=== PATIENT | male | born 1950 | race Caucasian/White ===

== ENCOUNTER 2018-08-06 00:08 | Outpatient (CLI) | payer BC, SELFPAY ==
--- NOTE | 2018-08-06 06:50 | MERGEMPI_ITS ---
*[facility]* *[facility]* [address] [place] [address] Myocardial Perfusion Imaging - SPECT Dante protocol Date of study: 08/06/2018 *PATIENT PRESENTATION* Height: 175.3cm (69in) Blood Pressure: Weight: 112.3kg (247lb) BSA: 2.38m^2 Referring physician: Tae Partida Ordering physician: Matthew Ramos Impressions: - Minor arrhythmias during the stress test which resolved appropriately. - Normal myocardial perfusion and contraction. Summary: 1. Myocardial perfusion imaging: No myocardial perfusion defects noted. 2. The calculated left ventricular ejection fraction after stress: 69%. LV global systolic function is normal. No left ventricular regional motion abnormality. 3. Stress ECG conclusions: The stress ECG is negative. 4. Stress: The target heart rate was achieved. There is a normal resting blood pressure with an appropriate response to stress. The patient experienced no chest pain during stress. Exercise capacity is excellent (12 METS). Indication: R07.9. History: REASON FOR TESTIN07/31/18 PATIENT PRESENTED TO THE ED WITH LEFT UPPER ARM PAIN X 8 WEEKS--WORSE AT NIGHT. NO KNOWN INJURY. DENIES CHEST PAIN/PRESSURE, SHORTNESS OF BREATH, AND NAUSEA. PAST MEDICAL HISTORY: OBESITY FAMILY HISTORY: FATHER-HYPERTENSION, SISTER-HYPERTENSION. SMOKING: INTERMITTENT FOR 3 YEARS A TEENAGER. EXERCISE: DOES NOT EXERCISE. NO CHOLESTEROL INFORMATION AVAILABLE. Risk factors: Family history of coronary artery disease. Obesity. ALLERGIES: NO KNOWN ALLERGIES. MEDICATIONS: ASPIRIN 81 MG DAILY. Imaging Technique: Protocol: Dante protocol. Acquisition: Gated SPECT; 1 day - rest/stress. The patient was imaged in the supine position. Attenuation correction used. Isotope administration: - Rest. Tc[99m]-sestamibi. Dose: 11.5mCi. Injection time: 09:00 AM. Injection to stress time: 00:45. - Stress. Tc[99m]-sestamibi. Dose: 36.1mCi. Injection time: 11:15 AM. 1-2 min before end of exercise Baseline ECG: LAST EKG: SINUS RHYTHM 07/31/18 TODAY'S EKG: SINUS RHYTHM. Stress protocol: + +---+ + !Stage !HR !BP (mmHg) ! + +---+ + !Baseline supine !64 !134/92 (106)! + +---+ + !Baseline standing !73 !142/92 (109)! + +---+ + !Stage I; 1.7mph, 10degrees; 3 min !95 !132/82 (99) ! + +---+ + !Stage II; 2.5mph, 12degrees; 3 min !114!146/78 (101)! + +---+ + !Stage III; 3.4mph, 14degrees; 3 min!135!148/88 (108)! + +---+ + !Recovery; 1 min !141!150/78 (102)! + +---+ + !Recovery; 3 min !93 !172/96 (121)! + +---+ + !Recovery; 6 min !86 !140/80 (100)! + +---+ + * Stress results: Maximal heart rate during stress was 152bpm (99% of maximal predicted heart rate). The maximal predicted heart rate was 154bpm. The target heart rate was achieved. There is a normal resting blood pressure with an appropriate response to stress. The rate-pressure product for the peak heart rate and blood pressure was 71669ow Hg/min. The patient experienced no chest pain during stress. Exercise capacity is excellent (12 METS). Stress ECG: EXERCISE TESTING ENDED IN 10 MINUTES 22 SECONDS WITH MAX HEART RATE OF 152, 98 % OF TARGET. BLOOD PRESSURE: NORMAL RESPONSE. ECTOPY: 3 BEAT VT AT 2 MINUTES RECOVERY. RARE TO INTERMITTENT PVC'S INCREASING STUDY PROGRESSED STUDY. MET'S: 12.41 ANGINA: LEFT POSTERIOR CHEST PRESSURE 2/10 AT 1 MINUTE RECOVERY. MINIMAL LEFT POSTERIOR CHEST PRESSURE AT 3 MINUTES RECOVERY. ISCHEMIA: NO ISCHEMIC CHANGES NOTED. FUNCTIONAL CAPACITY: ABOVE AVERAGE . The stress ECG is negative. A single episode of nonsustained ventricular tachycardia (3 beats). Gill treadmill score: 11. This score predicts a low risk of cardiac events. Myocardial perfusion: Imaging information: gated. The image quality was good. Left ventricular size is normal. No myocardial perfusion defects noted. Ventricular Function (Wall Motion): The calculated left ventricular ejection fraction after stress: 69%. LV global systolic function is normal. No left ventricular regional motion abnormality. Right ventricular function is normal. Study data: Tae Partida MD supervised and was readily available during the procedure. This study was interpreted by [facility]. Study status: Routine. Consent: The risks, benefits, and alternatives to the procedure were explained to the patient and informed consent was obtained. Procedure: Initial setup. A baseline ECG was recorded. Surface ECG leads and manual cuff blood pressure measurements were monitored. Heart sounds: Normal. Lung sounds: Normal. Treadmill exercise testing was performed using the Dante protocol. Study completion: All catheters inserted during the procedure were removed. The patient tolerated the procedure well and was discharged from the lab. Discharge: The patient left the laboratory in stable condition. Birthdate: Patient birthdate: 1950. Sex: Gender: male. Study date: Study date: 08/06/2018. Study time: 06:50 AM. Signature Documentation: - The imaging portion of this study was interpreted by Nuclear Display And Banner Designer Tae Partida MD. - The imaging portion of this study was interpreted by Nuclear Radiologist Vega Ferrera MD. - The Stress ECG portion of this study was interpreted by Tae Partida MD. Electronically signed by Tae Partida 08/06/2018 15:43
== END 2018-08-06 00:28 ==
PROVIDERS: PCP Emergency Medicine; Visit Provider Family Medicine
DX: R07.9 Chest pain, unspecified (principal); E66.9 Obesity, unspecified; Z87.891 Personal history of nicotine dependence; Z82.49 Family history of ischemic heart disease and other diseases of the circulatory system
CPT/HCPCS: 78452; 93017

== ENCOUNTER 2019-11-11 11:57 | Outpatient (CLI) | payer MEDICARE, BC, SELFPAY ==
--- NOTE | 2019-11-11 12:13 | DI.RAD_ITS ---
EXAM: XR HIP LT COMPLETE AND AP PELVIS INDICATION: LEFT HIP PAIN, M25.552. COMPARISON: No exams were available for comparison TECHNIQUE: 2D digital imaging was performed. FINDINGS: In the left hip, there is joint space narrowing, subchondral sclerosis and cyst formation. There als o appear to be osteophytes arising from the acetabulum. Bones are normally mineralized. The soft ti ssues are unremarkable. IMPRESSION: Moderate degenerative changes of the left hip.
[2019-11-11 14:05] LABS: Calculated LDL 100 mg/dL; Cholesterol 156 mg/dL (<200); HDL Cholesterol 35 mg/dL (40-60); Triglyceride 107 mg/dL (<150)
== END 2019-11-11 12:17 ==
PROVIDERS: PCP Emergency Medicine; Visit Provider Emergency Medicine
DX: M25.552 Pain in left hip (principal); M16.12 Unilateral primary osteoarthritis, left hip; E78.89 Other lipoprotein metabolism disorders; Z13.6 Encounter for screening for cardiovascular disorders
CPT/HCPCS: 36415; 80061; 73502

== ENCOUNTER → 2019-12-01 09:44 | Outpatient (BNVA) | payer MEDICARE, BC, SELFPAY | PROVIDERS: PCP Emergency Medicine; Referring Provider Emergency Medicine; Visit Provider Orthopaedic Surgery | DX: M16.12 Unilateral primary osteoarthritis, left hip (principal) | CPT/HCPCS: 99203; 99214 ==

== ENCOUNTER 2019-12-11 08:48 | Outpatient (CLI) | payer MEDICARE, BC, SELFPAY ==
[2019-12-11 10:12] LABS: Abs Immature Grans 0.02 k/cumm (0.0-0.09); Absolute Basophil Count 0.03 k/cumm (0.0-0.2); Absolute Eosinophil Count 0.26 k/cumm (0.0-0.7); Absolute Lymphocyte Count 1.18 k/cumm (1.2-3.4); Absolute Monocyte Count 0.78 k/cumm (0.11-0.7); Absolute Neutrophil Count 4.16 k/cumm (1.2-6.7); Basophils % 0.5; HCT 43.4 % (40.0-50.0); HGB 15.2 g/dL (13.5-17.5); Immature Grans % 0.3 %; Lymphocytes % 18.4; Mean Corpuscular Hemoglobin 32.1 pg (27.0-33.0); Mean Corpuscular Volume 91.8 fL (80-95); Mean Platelet Volume 9.7 fL (8.0-11.0); Monocytes % 12.1; Neutrophils % 64.7; Platelet Count 185 x1000/uL (130-400); RBC 4.73 m/cumm (4.50-6.00); RBC Distribution Width 13.2 % (11.8-14.1); White Blood Cell Count 6.43 k/cumm (4.4-10.8)
== END 2019-12-11 09:08 ==
PROVIDERS: PCP Emergency Medicine; Visit Provider Orthopaedic Surgery
DX: M16.12 Unilateral primary osteoarthritis, left hip (principal); Z01.812 Encounter for preprocedural laboratory examination; Z01.818 Encounter for other preprocedural examination
CPT/HCPCS: 36415; 86850; 86900; 86901; 85025

== ENCOUNTER 2019-12-21 05:58 | Inpatient (IN) | payer MEDICARE, BC, SELFPAY ==
[2019-12-11 08:49] VITALS: BP 126/86; PULSE 60; RESP 18; TEMP 36.7; O2SAT 95
[2019-12-21] VITALS (15 sets, daily range): BP systolic 99–138; BP diastolic 59–90; PULSE 54–66; RESP 11–20; TEMP 36.1–37.1; O2SAT 94–100
--- NOTE | 2019-12-21 | DI.RAD_ITS ---
EXAM: XR PELVIS AP INDICATION: Check position of total hip components in RR. COMPARISON: XR HIP LT IN OR from 12/21/2019 TECHNIQUE: 2D digital imaging was performed. FINDINGS: Patient is status post placement of a left hip prosthesis. The components appear well aligned. DATA REPOSITORY: RADIATION DOSE DELIVERED:
--- NOTE | 2019-12-21 06:30 | DI.RAD_ITS ---
EXAM: XR HIP LT IN OR INDICATION: left total hip portable in OR. COMPARISON: XR HIP LT COMPLETE AP PELVIS from 11/11/2019 TECHNIQUE: 2D digital imaging was performed. FINDINGS: A single image shows placement of components of a left hip prosthesis. The alignment appears satisf actory. DATA REPOSITORY: RADIATION DOSE DELIVERED:
[2019-12-21] MEDS: Lactated Ringers 1,000 ML 80 ML IV ×2 (06:44→08:55)
[2019-12-21] MEDS: ceFAZolin 2 GM/50 ML BAG IVPB ×4 (07:40→18:09)
[2019-12-21] MEDS: Bupivacaine 0.5% Pres-Free 30 ML VIAL (08:23)
[2019-12-21] MEDS: POTASSIUM CHLORIDE/0.9% NACL 1,000 ML 150 MEQ IV ×2 (12:56→21:44)
[2019-12-21] MEDS: oxyCODONE-CR 10 MG TABCR PO (12:59)
--- NOTE | 2019-12-21 14:56 | IN_ITS ---
Date of service: 12/21/19 Time of Service: 14:55 PT Notes Visit Reasons: POST-OP LTOTAL HIP Physical Therapy Inpatient Initial Evaluation Date: 12/21/2019 Referring Doctor: Andrea Jessica M.D. PT Orders: PT CONSULT: s/p ortho surgery Precautions: Fall. Standard. Activity as tolerated. Total hip precautions on the left. Patient Profile/Admitting Diagnosis: Pt is a 69-year-old male status post left total hip arthroplasty on post-operative day zero. PMHX: Medical History (Updated 12/01/19 @ 10:55 by BRUNA Balderas) Idiopathic peripheral neuropathy (Chronic 11/04/17) Obesity KRISTAN (obstructive sleep apnea) Surgical History Colonoscopy - MAC (03/15/17) Orchiectomy, Radical left Social History/Home Situation: Pt lives at home in [place] with his . Five steps to enter the home with no rails. Notes there are stairs in the home, but is not required to use them. Equipment Owned/DME: none Subjective: Pt reports that he is experiencing discomfort in his hip that is different than what he had been experiencing previously. he initially reported being lightheaded but felt better after sitting for awhile and after performing ankle pumping activities. Objective: General Observation: IV line in L UE. Pate catheter in place. O2 via nasal cannula on 2 L/min Mental Status: alert and oriented x4 Pain: 3/10 ?discomfort? Vital Signs: BP 115/68 mmHg in sitting on edge of the bed ROM: Right Upper Extremity: Shoulder Flexion WFL. Shoulder abduction WFL. Elbow flexion WFL. Wrist flexion WFL. Opening and closing of hand WFL. Left Upper Extremity: Shoulder Flexion WFL. Shoulder abduction WFL. Elbow flexion WFL. Wrist flexion WFL. Opening and closing of hand WFL. Right Lower Extremity: Hip flexion 110 degrees. Hip abduction WFL. Knee flexion WFL. Ankle dorsiflexion WFL. Ankle plantarflexion WFL. Left Lower Extremity: Hip flexion WFL. Hip abduction WFL. Knee flexion WFL. Ankle dorsiflexion WFL. Ankle plantarflexion WFL. Strength: Right Upper Extremity: Shoulder flexors 5/5. Shoulder abductors 5/5. Elbow flexors 5/5. Elbow extensors 5/5. Wellness Spa Manager strong. Left Upper Extremity: Shoulder flexors 5/5. Shoulder abductors 5/5. Elbow flexors 5/5. Elbow extensors 5/5. Wellness Spa Manager strong. Right Lower Extremity: Hip flexors 5/5. Hip abductors 5/5. Knee flexors 5/5. Knee extensors 5/5. Ankle dorsiflexors 5/5. Ankle plantarflexors 5/5. Left Lower Extremity: Hip flexors 3-/5. Hip abductors 4+/5. Knee flexors 5/5. Knee extensors 4/5. Ankle dorsiflexors 5/5. Ankle plantarflexors 5/5. Sensation: Intact as to pain and pressure on bilateral lower extremities. Bed Mobility/Transfers: Rolling supervision Supine to sit supervision; complained of lightheadedness Sit to supine supervision Sit to stand SBA Stand to sit SBA Bed to chair SBA Chair to bed SBA Gait: Pt was able to ambulate 120 feet, WBAT on the L LE, using a front-wheeled walker. CGA provided by PT with wheelchair follow provided by PT student. Pt on 2L/min of O2 via NC. Step to gait pattern for first 60 feet and step through for last 60 feet of ambulation. Pt appeared to be more unstable with step through gait pattern. Balance: Static Sitting: Normal Dynamic Sitting: Normal Static Standing: Fair Dynamic Standing: Fair Special Tests: Mobility Limitations Standardized Measure [facility] AM-PAC 6 clicks Basic Mobility Inpatient Short Form: Raw Score: 23 CMS Score: 11% deficit Informed Consent/Education: Patient instructed in purpose of PT consult and plan of care. Assessment: Pt is a 69-year-old male status post left total hip arthroplasty on post-operative day zero. He presents to physical therapy with impairment level findings and functional limitations as listed below. He was able to tolerate ambulation without increases in pain, lightheadedness, or fatigue. Pt appeared to be more unstable with step through gait pattern. He would continue to benefit from skilled physical therapy at this time to assess performance on stairs, and to improve mobility, strength and balance. Patient presents with clinical signs and symptoms consistent with current/admitting diagnoses that have resulted to mobility limitations, gait instability, and generalized weakness as demonstrated by the following impairment level findings: 1. Decreased strength to L LE hip major muscle groups 2. Impaired standing balance 3. Impaired activity tolerance 4. Limitation of joint range of motion in left hip Impairments are contributing to the following functional limitations: 1. Dependent bed mobility skills 2. Increased dependence with transfers 3. Inability to safely ambulate without assistive device and physical assistance 4. Increase completion time for mobility ADL performance 5. Increased fall risk 6. Inability to negotiate steps alone safely Patient is assessed as a 45188 complexity based on the following: History: He presents to physical therapy with impairment level findings and functional limitations as listed above. AM-PAC raw score of 23 with 11% deficit Examination: Demonstrable impairment in strength, balance, and range of motion with underlying impairments and functional limitations as documented above Presentation: Evolving Decision Makin moderate complexity Goals: Goals X1 week 1. Supine-Sit independent 2. Sit-Supine independent 3. Sit-Stand independent 4. Stand-Sit independent 5. Bed-Chair independent 6. Chair-Bed independent 7. Independent gait on level surface with use of least restrictive device for at least 300 feet without report of pain nor dyspnea 8. Independent stair negotiation while holding onto bilateral rails for at least 5 steps without report of pain nor dyspnea 9. Independent with home exercise program 10. Good static and dynamic standing balance/tolerance Plan of Care/Treatment Plan: 1-2x/day, 7 days/week x 1 week. Plan of care has been reviewed with the DRIVER/MERCHANDISER providing the service under Physical Therapy direction. Initiate Physical Therapy intervention for strengthening, bed mobility, transfers, gait, stairs, balance training, use of assistive device. DISCHARGE RECOMMENDATIONS: Discharge to home when medially cleared. Recommend front-wheeled walker for safe ambulation. TREATMENT CODE/TIME: 77555 x 25 minutes + 73579 x 10 minutes beginning at 14:55 P.M. Thank you very much for this referral. Benjamin Matos, SPT Doctor of Physical Therapy Student [facility] Supervision provided by Sharonda Thomas PT, DPT, CLT [facility] [place], [place]
[2019-12-21] MEDS: Docusate Sodium 100 MG CAP PO ×2 (16:11→20:27)
[2019-12-21] MEDS: Ketorolac 30 MG/ML VIAL IVP ×2 (16:11→21:45)
[2019-12-21] MEDS: Acetaminophen 325 MG TAB 650 MG PO (20:27)
[2019-12-21] MEDS: Normal Saline Flush 10 ML SYR IV (21:44)
[2019-12-22] MEDS: ceFAZolin 2 GM/50 ML BAG IVPB ×2 (00:01→06:30)
[2019-12-22] MEDS: Normal Saline Flush 10 ML SYR IV ×2 (04:09→11:14)
[2019-12-22] MEDS: Ketorolac 30 MG/ML VIAL IVP ×2 (04:11→11:13)
[2019-12-22] MEDS: POTASSIUM CHLORIDE/0.9% NACL 1,000 ML 150 MEQ IV (04:17)
--- NOTE | 2019-12-22 07:01 | ROE_ITS ---
REPORT OF OPERATIVE PROCEDURE DATE OF PROCEDURE December 21, 2019 PREOPERATIVE DIAGNOSIS Osteoarthritis left hip. POSTOPERATIVE DIAGNOSIS Osteoarthritis left hip. PROCEDURE Left total hip arthroplasty. COMPONENTS USED 1. 56-mm diameter acetabular shell. 2. 56 x 36 neutral Polyethylene liner. 3. Size 5 DePuy Bureau Stem. 4. 36-mm +5 ceramic femoral head. All components were Press-fit. SURGEON Andrea Jessica M.D. ANESTHESIA General, Brodie Shipman C.R.N.A. 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 He wished to maintain current activity leve ls without pain. A total hip arthroplasty was recommended to alleviate his pain and hopefully restor e some of his previous ambulatory abilities. The risks and complications of the procedure were explai ilya to the patient in detail preoperatively. DESCRIPTION OF PROCEDURE The patient was taken to the Operating Room on 12/21/19. He was placed on the operating table and a ge neral anesthetic was administered. He was then turned to the left lateral position on the operating t able. This position was maintained by a pneumatic beanbag. The left hip was then prepped and draped free in the usual and sterile fashion. 2 grams of Ancef were administered IV prior to skin incision. A standard posterolateral incision was made centered over the greater trochanter. The incision was c arried down through the skin and subcu to the IT band and gluteus fascia. The subcutaneous veins wer e cauterized. The iliotibial was incised longitudinally and this incision was carried proximally in l ine with the fibers of the gluteus deep. Charnley self-retaining retractor was inserted. The pirif ormis tendon was identified. Veins over the piriformis tendon were cauterized and then the piriformis tendon was released with insertion on the femoral head. A tag suture was placed in the tendon for la ter retrieval. Next, the hip capsule was incised as far anteriorly as possible, then sharply reflected with electroc autery from the femoral neck down to the intertrochanteric line. Capsule bleeders were cauterized. A bone hook was then used to dislocate the hip. The femoral neck was then resected at the appropriate l evel and angle using a femoral neck resection guide and oscillating saw. An anterior capsulectomy was performed. Acetabular retractors were inserted. The acetabulum was then serially reamed with hemispheric reamers until there complete filling of the acetabulum with a 56-mm diameter reamer. The 56-diameter acetabular shell was then press fit into the acetabulum. Press fit w as supplemented by one screw through the acetabular shell. A trial liner was inserted. The anterior o steophytes of the acetabular rim were resected using an osteotome and a mallet. Attention was then turned to the femoral side. Box chisel was used to enter the femoral canal. A series of straight reamers were then used to ream t he femoral canal. It was felt to be a tight fit with a size 5 reamer due to narrowing of the femoral canal. The femoral canal was then serially broached up to a size 5 where it was felt there was good f it and fill. Trial reduction was performed with a high offset trial neck and a #5 femoral head trial. The trial was reduced in the acetabulum. Then, an intraoperative AP x-ray was obtained. The intraop erative AP x-rays showed that the size 5 femoral stem provided good fit and fill. The canal narrowed distally quite a bit and I did not feel that a size 6 stem could be safely inserted. Also, determined from the x-ray that a +5 head would equalize limb lengths. The hip was dislocated, the trial femoral component was removed. The trial acetabular liner was removed. The manhole cover was inserted to blo ck the hole in the center of the acetabular shell. The actual liner, 56 x 36 neutral was placed in th e acetabular shell and impacted and locked in place with the impactor mallet. The GARCIA porous-coated size 5 Bureau Stem was then inserted in proper anteversion and then impacted wit h the road oiling truck driver and mallet until fully seated in the femur. It was an excellent press-fit with no motion at the bone prothesis interface. The size 36 +5 ceramic femoral head was then placed on the neck of the femoral stem and then impacted in place with the impactor mallet. The wound was irrigated with p ulse irrigation lavage and the femoral component was reduced into the acetabulum. Stability was check ed at this point. The hip was stable through 90 degrees of flexion and 60 degrees of internal rotatio n, and was stable with external rotation in extension. The left thigh was abducted in a Trivedi stand an d closure was begun. Tranexamic acid 2 grams and 150 cc of saline solution was instilled into the wound and allowed to sta y in the wound for about a minute before suctioning. Any bleeders that remained were cauterized. The posterior capsular flap that was developed during exposure was now attached to the posterior edge of the greater trochanter with sutures of #2 FiberWire passed through drill holes in the greater tro chanter posteriorly. The piriformis tendon was re-attached to the abductor tendon at its insertion o n the greater trochanter with interrupted [id number] sutures of #1-Vicryl suture material. The IT band and gluteus fascia were approximated with interrupted [id number]-az-zdugi sutures of #1-Vicryl willett ture material. The subcu was approximated with interrupted #2-0 Vicryl sutures and running subcuticul ar suture with #4-0 absorbable suture was performed. This was supplemented with tissue glue and Steri -Strips. The wound was dressed with Xeroform gauze, sterile gauze, 4x4s and ABD pads covered with a f ormalistic tape. The patient was then turned supine on the operating table. An abduction pillow was placed between his legs. The patient's anesthesia was reversed without complications. The wound margins had been infi ltrated with 0.5% Marcaine with epinephrine solution prior to skin closure for postoperative analgesi a. Estimated blood loss 200 cc. The patient tolerated the procedure well and was discharged to the Recovery Room in good condition.
[2019-12-22 07:25] VITALS: BP 101/65; PULSE 64; RESP 19; TEMP 36.4; O2SAT 99
[2019-12-22 07:37] LABS: HCT 36.1 % (40.0-50.0); HGB 12.3 g/dL (13.5-17.5); Mean Corp. HGB Concentration 34.1 g/dL (32.0-36.0); Mean Platelet Volume 10.5 fL (8.0-11.0); Platelet Count 140 x1000/uL (130-400); RBC 3.84 m/cumm (4.50-6.00); RBC Distribution Width 13.2 % (11.8-14.1)
[2019-12-22 08:07] VITALS: O2SAT 96
[2019-12-22 08:34] VITALS: TEMP 36.4; O2SAT 99
--- NOTE | 2019-12-22 08:36 | PT.INTREAT ---
Date of service: 12/22/19 Time of Service: 08:36 PT Notes Visit Reasons: POST-OP LTOTAL HIP 12/22/2019 SUBJECTIVE: Pt stating he has minimal discomfort this morning. He slept well last night. Agreeable to PT treatment. OBJECTIVE: Pt supine in bed upon entering his room this morning. PT EDUCATION: Review 3 hip precautions with patient and nursing. TRANSFERS Supine to sit: I Sit to stand: SBA Stand to sit: SBA and cues for reaching back. GAIT Device: FWW Weight bearing: AT L Assist: SBA Distance: 120'x2 Deviation: Step to patern progressing to step through THEREX: Performs light LE strengthening and muscle setting as noted on flow sheet. STAIRS: 3-4, 2-6, 2 rails, step to pattern, SBA. ASSESSMENT: Tolerates PT well this morning. Pain is well managed. Pt does require cueing for safety with transfers and reminders about his hip precautions. No difficulty managing stairs or with straight plane ambulation. PLAN: Continue current POC. Treatment time: 25 minutes [id number], [id number] Melissa Bonilla, DANTE
[2019-12-22] MEDS: Multivitamin w/Minerals TAB 1 TAB PO (08:56)
[2019-12-22] MEDS: Pantoprazole 40 MG TABCR PO (08:56)
[2019-12-22] MEDS: Docusate Sodium 100 MG CAP PO (08:56)
--- NOTE | 2019-12-22 09:08 | PDOC.CMIN ---
Care Management Initial Assess REASON FOR HOSPITALIZATION:: Post-Op L Total Hip PAST MEDICAL HISTORY/PAST SURGICAL HISTORY:: Idiopathic perpheral neuropathy, obesity, KRISTAN, colonoscopy, orchiectomy radical left. PREVIOUS FUNCTIONAL STATUS/SOCIAL/FAMILY SUPPORTS:: Kelli resides in [place] with his partner, Maria Fernanda. His sister, Debra resides in [place], where Kelli is originally from. 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 Kelli was previously and has four adult children. He reported he is enjoying detention thus far. CURRENT FUNCTIONAL STATUS:: Kelli was sitting up in his chair when CM met with him. He was pleasant in interaction and shared no concerns. ADVANCE DIRECTIVES:: None on file; document provided. Has patient been provided with information about the portal?: Yes Did the patient sign up for the portal?: No (Will manage his own.) CODE STATUS:: Full Code INSURANCE COVERAGE / FINANCIAL ISSUES:: BC/BS. Medicare CURRENT HOME/COMMUNITY SERVICES/EQUIPMENT:: FWW. PRIMARY CARE PHYSICIAN:: Chao Doran DO. POTENTIAL DISCHARGE NEEDS:: PT Evaluation, possible [facility]NA referral. PATIENT/FAMILY EDUCATION NEEDS:: Review discharge instructions, discuss Ask Me Three. ANTICIPATED BARRIERS TO DISCHARGE:: None identified. TRANSPORTATION:: Via private vehicle with his partner. PLAN:: Kelli will return home when ready per MD. He will follow up with Orthopedics and his plan of care as prescribed including medication recommendations and activity restrictions. Undetermined if he will have new VNA orders upon discharge; CM continues to follow. He will transport via private vehicle with his significant other.
[2019-12-22] MEDS: Enoxaparin 40 MG/0.4 ML SYR SC (10:01)
[2019-12-22 12:05] VITALS: BP 120/72; PULSE 85; RESP 20; TEMP 37.3; O2SAT 97
--- NOTE | 2019-12-22 12:33 | W.PM.DS.N ---
Date of service: 12/22/19 Time of Service: 12:33 DS: Diagnosis Discharge Diagnosis (1) Primary osteoarthritis of left hip: Status: Acute Discharge Plan Disposition Patient Disposition: HOME Condition: Good Discharge Details Reason For Visit: POST-OP LTOTAL HIP Admit Date/Time: 12/21/19 05:58 Admit Provider: Andrea Jessica Attending Provider: Andrea Jessica Primary Care Provider: Chao Doran Hospital Course Hospital Course: Patient was taken the operating on a day of admission 12/21/2019 where he underwent a left total hip arthroplasty without complication. He was mobilized in the afternoon following the surgery. He progressed rapidly with his mobilization achieving full independence with transfers and ambulation by 12/22/2019. He remained afebrile throughout his hospital course. Postop hemoglobin on 12/22/2019 was 12.3 g. He was taking no oral narcotics. He was maintained just with the multimodal pain medicines. I felt he had completed the acute care phase of his hospitalization and could be safely discharged home. Home Meds and New Rx's Prescriptions: New ibuprofen 800 mg tablet 800 mg PO TID Qty: 30 RF: 0 oxycodone-acetaminophen 5-325 mg tablet 1 tab PO Q4H PRN (Reason: pain) Qty: 20 RF: 0 Discontinued naproxen sodium [Aleve] 220 mg Tablet 440 mg PO HS RF: 0 No Action sertraline 50 mg tablet 150 mg PO DAILY Qty: 300 RF: 6 Discharge Instructions Additional Instructions: Walk every day as much as pain allows. Use walker until return. No driving the car until return. Return to 's office in 2 weeks. Elevate L leg when sitting. Total hip precautions L for 6 weeks. You may lay on L side if not painful. Keep pillow between knees when you lay on R side. Apply ice to L hip incision 3-4 times/day for 1 hour each time. Take one baby aspirin (81 mg) twice/day for 30 days to prevent bloodclots in legs. May take off outer bandage from L hip to shower on . After showering, pat the last layer of bandage dry. Allow the last layer of dressing to fall off by itself over time. Take ibuprofen 3 times/day as prescribed, to limit inflammation and pain. Take oxycodone for breakthru pain, if needed. Referrals: Andrea Jessica MD [ [facility] STAFF PHYSICIAN] - (f/u in 2 weeks.) Activity:: Activity as Tolerated Equipment/Supplies:: Walker Diet:: As Tolerated Discharge Orders Discharge Orders: Discharge Order (Routine); Ordered 12/22/19 Ordered By: Andrea Jessica DS: Summary Status at Discharge Functional status at discharge: uses cane/walker Overall status at discharge: patient is progressing back to baseline Mental Status: mental status grossly normal Speech and Movement: speech and movement normal Mood: congruent mood Affect: normal affect Exam Psych Mental Status: mental status grossly normal Speech and Movement: speech and movement normal Mood: congruent mood Affect: normal affect DS: Data Vitals/I&O Vitals and I&O: Vital Signs Temperature 36.4 C L 12/22/19 07:25 Temperature Source Tympanic 12/22/19 07:25 Pulse 64 12/22/19 07:25 Pulse Rhythm Regular 12/22/19 09:11 Respiratory Rate 19 12/22/19 07:25 Respiratory Effort 12/22/19 09:11 Respiratory Depth Normal 12/22/19 09:11 Respiratory Pattern Normal 12/22/19 09:11 Blood Pressure 101/65 12/22/19 07:25 Pulse Oximetry 99 12/22/19 08:34 Respiratory End-tidal CO2 30 12/21/19 12:10 Oxygen Delivery Method Nasal Cannula 12/22/19 08:34 Oxygen Flow Rate 3 12/22/19 08:34 Pain Level 2 12/22/19 11:13 Intake & Output 12/21/19 12/22/19 12/22/19 23:59 11:59 23:59 Intake Total 1695 / 2945 4280.0 / 4280.0 Output Total 575 / 675 1225 / 1225 Balance 1120 / 2270 3055.0 / 3055.0 Intake: IV 1695 / 2945 1415.0 / 1415.0 Oral 2865 / 2865 Output: Urine 575 / 675 1225 / 1225 Other: Urine Color Pale Yellow Light Shelbi Urine Appearance Clear Clear Urine Odor None Normal Emesis Description None Voiding Methods Indwelling Catheter Indwelling Catheter Data Completed and Pending Labs on day of discharge: Labs from last 24 hours 12/22/19 07:05 WBC 13.40 H RBC 3.84 L Hgb 12.3 L Hct 36.1 L MCV 94.0 MCH 32.0 MCHC 34.1 RDW 13.2 Plt Count 140 MPV 10.5 PFSH Social History Smoking/Tobacco Use Status: Former Tobacco Use Quit Date: 10/21/93 Alcohol Intake: current Drug use: Never Substance use type: does not use 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
[2019-12-22] MEDS: oxyCODONE-CR 10 MG TABCR PO ×2 (12:44)
--- NOTE | 2019-12-22 13:01 | PT.INTREAT ---
Date of service: 12/22/19 Time of Service: 13:01 PT Notes Visit Reasons: POST-OP LTOTAL HIP 12/22/2019 SUBJECTIVE: Pt reporting 0/10 pain. He would like to get up and walk because he has been sitting for quite some time. He notes he is going home. OBJECTIVE: Seated in recliner. Agreeable to PT treatment. TRANSFERS Sit to stand: I Stand to sit: I GAIT Device: FWW Weight bearing: AT L Assist: S Distance: 120'x2 Deviation: Step through pattern, often carries his walker. THEREX: Review HEP for light muscle setting, AROM of the hip within post op precautions. PT EDUCATION: Answer all questions for pt and his significant other. Review post op total hip precautions. ASSESSMENT: Pt continues to do well s/p day 1 of total hip replacement, posterior approach. He has a good understanding of total hip precautions and his HEP. Good management on stairs and with straight plane ambulation using FWW. PLAN: Pt to be discharged home today. See discharge summary for details. Treatment time: Melissa Bonilla PTA
--- NOTE | 2019-12-22 15:18 | PDOC.CMDIS ---
LACE Index Scoring Tool - Questions: Length of Stay (in days): 1 Acuity (Admit via E.D.?): No E.D. Visits: 0 - Answers: Total Score: 1 Risk of Readmission: Low Risk Care Management Discharge Reason for Hospitalization: Post-Op L Total Hip Discharge Plan: Kelli will return home when ready per MD. He will follow up with Orthopedics and his plan of care as prescribed including medication recommendations and activity restrictions. He reports already having a FWW at home for recovery. He will transport via private vehicle with his significant other. Patient/Family Education Needs: Review of discharge instructions, discuss Ask Me Three.
--- NOTE | 2019-12-23 17:00 | PT.INDS ---
Date of service: 12/23/19 PT Notes Visit Reasons: POST-OP LTOTAL HIP Physical Therapy Inpatient Discharge Summary Date: 12/23/2019 Dates of Service: 12/21/2019 through 12/22/2019 This is a clinical summary of care provided on the duration of dates listed above. No charge was made in the completion of this documentation. Patient Profile/Admitting Diagnosis: Pt is a 69-year-old male status post left total hip arthroplasty on post-operative day zero. Objective: General Observation: IV line in L UE. Pate catheter in place. O2 via nasal cannula on 2 L/min. Alert and oriented x4 Pain: 3/10 ?discomfort? ROM: Right Upper Extremity: Shoulder Flexion WFL. Shoulder abduction WFL. Elbow flexion WFL. Wrist flexion WFL. Opening and closing of hand WFL. Left Upper Extremity: Shoulder Flexion WFL. Shoulder abduction WFL. Elbow flexion WFL. Wrist flexion WFL. Opening and closing of hand WFL. Right Lower Extremity: Hip flexion 110 degrees. Hip abduction WFL. Knee flexion WFL. Ankle dorsiflexion WFL. Ankle plantarflexion WFL. Left Lower Extremity: Hip flexion WFL. Hip abduction WFL. Knee flexion WFL. Ankle dorsiflexion WFL. Ankle plantarflexion WFL. Strength: Right Upper Extremity: Shoulder flexors 5/5. Shoulder abductors 5/5. Elbow flexors 5/5. Elbow extensors 5/5. Channel Development Manager strong. Left Upper Extremity: Shoulder flexors 5/5. Shoulder abductors 5/5. Elbow flexors 5/5. Elbow extensors 5/5. Channel Development Manager strong. Right Lower Extremity: Hip flexors 5/5. Hip abductors 5/5. Knee flexors 5/5. Knee extensors 5/5. Ankle dorsiflexors 5/5. Ankle plantarflexors 5/5. Left Lower Extremity: Hip flexors 3-/5. Hip abductors 4+/5. Knee flexors 5/5. Knee extensors 4/5. Ankle dorsiflexors 5/5. Ankle plantarflexors 5/5. Sensation: Intact as to pain and pressure on bilateral lower extremities. Bed Mobility/Transfers: Rolling Independent Supine to sit Independent Sit to supine Independent Sit to stand Independent Stand to sit Independent Bed to chair Independent Chair to bed Independent Gait: Pt was able to ambulate 120 feet x2, WBAT on the L LE, using a front-wheeled walker. Supervision provided by PROGRAM ANALYST. Stairs: Pt was able to ascend and descend the 4-inch steps x 3 and 6-inch steps x2 using bilateral upper extremity support. Step to gait pattern. SBA provided by PROGRAM ANALYST. Balance: Static Sitting: Normal Dynamic Sitting: Normal Static Standing: Fair Dynamic Standing: Fair Assessment: Pt is a 69-year-old male status post left total hip arthroplasty that presented on post-operative day zero. He presented to physical therapy with impairment level findings and functional limitations as listed below. He was able to tolerate ambulation without increases in pain, lightheadedness, or fatigue. Pt appeared to be more unstable with step through gait pattern initially. Pt was able to progress to independence with transfers and bed mobility. He demonstrated improvements in walking ability as he was able to ambulate a greater distance with only supervision provided by physical therapy. Pt was able to tolerate negotiation of the steps without difficulty or complaints of increased pain. He no longer requires skilled physical therapy at this time. Patient presented with clinical signs and symptoms consistent with current/admitting diagnoses that have resulted to mobility limitations, gait instability, and generalized weakness as demonstrated by the following impairment level findings: 1. Decreased strength to L LE hip major muscle groups 2. Impaired standing balance 3. Impaired activity tolerance 4. Limitation of joint range of motion in left hip Impairments continue to contribute to the following functional limitations: 1. Dependent bed mobility skills 2. Increased dependence with transfers 3. Inability to safely ambulate without assistive device and physical assistance 4. Increase completion time for mobility ADL performance 5. Increased fall risk 6. Inability to negotiate steps alone safely Patient was assessed as a [id number] moderate complexity based on the following: History: He presented to physical therapy with impairment level findings and functional limitations as listed above. AM-PAC raw score of 23 with 11% deficit Examination: Demonstrable impairment in strength, balance, and range of motion with underlying impairments and functional limitations as documented above Presentation: Evolving Decision Makin moderate complexity Goals: Goals X1 week 1. Supine-Sit independent -MET 2. Sit-Supine independent -MET 3. Sit-Stand independent -MET 4. Stand-Sit independent -MET 5. Bed-Chair independent -MET 6. Chair-Bed independent -MET 7. Independent gait on level surface with use of least restrictive device for at least 300 feet without report of pain nor dyspnea -NOT MET 8. Independent stair negotiation while holding onto bilateral rails for at least 5 steps without report of pain nor dyspnea -MET 9. Independent with home exercise program -MET 10. Good static and dynamic standing balance/tolerance -NOT MET DISCHARGE RECOMMENDATIONS: Discharge to home when medially cleared. Recommend front-wheeled walker for safe ambulation. Thank you very much for this referral. Benjamin Matos, SPT Doctor of Physical Therapy Student [facility] Supervision provided by Sharonda Thomas PT, DPT, CLT [facility] [place], [place]
== END 2019-12-22 14:37 | disposition home or self-care (01) | DRG 470 ==
LOC: PDS 06:02 → MS 11:31
PROVIDERS: Admitting Provider Orthopaedic Surgery; PCP Emergency Medicine; Visit Provider Orthopaedic Surgery
PROC: 0SRB04A Replacement of Left Hip Joint with Ceramic on Polyethylene Synthetic Substitute, Uncemented, Open Approach (ICD-10-PCS; CPT 27130; principal; 2019-12-21 07:30)
DX: M16.12 Unilateral primary osteoarthritis, left hip (principal); M25.552 Pain in left hip; Z96.642 Presence of left artificial hip joint; G47.33 Obstructive sleep apnea (adult) (pediatric)
CPT/HCPCS: 27130; 36415; 85027; 97110; 97162; 97530; J1650; NC; 72170; 73501; J0131; J0690; J1100; J1885; J2001; J2250; J2405; J3010; L1686

== ENCOUNTER 2020-01-06 10:11 | Outpatient (CLI) | payer MEDICARE, BC, SELFPAY ==
--- NOTE | 2020-01-06 09:15 | DI.RAD_ITS ---
EXAM: XR HIP LT COMPLETE AP PELVIS CLINICAL HISTORY: f/u TECHNIQUE: COMPARISON: XR PELVIS AP from 12/21/2019 FINDINGS: Two views were obtained. There is total hip joint replacement position on the left.. The components appear well seated. Moderate degenerative changes the right hip are noted with some narrowing of th e cartilaginous joint space and subchondral sclerosis the superior acetabulum along with mild acetabu lar spurring. IMPRESSION:
== END 2020-01-06 10:31 ==
PROVIDERS: PCP Emergency Medicine; Referring Provider Emergency Medicine; Visit Provider Orthopaedic Surgery
DX: Z96.642 Presence of left artificial hip joint (principal); Z47.1 Aftercare following joint replacement surgery; M16.11 Unilateral primary osteoarthritis, right hip
CPT/HCPCS: 73502

== ENCOUNTER → 2020-06-08 09:01 | Outpatient (BNVA) | payer MEDICARE, BC, SELFPAY | PROVIDERS: PCP Emergency Medicine; Referring Provider Emergency Medicine; Visit Provider Surgery | DX: Z12.11 Encounter for screening for malignant neoplasm of colon (principal); Z86.010 Personal history of colon polyps | CPT/HCPCS: 99212 ==

== ENCOUNTER 2020-06-20 07:20 | Outpatient (CLI) | payer MEDICARE, BC, SELFPAY ==
[2020-06-21 14:27] LABS: COVID-19 RT-PCR Result NEGATIVE (Negative)
== END 2020-06-20 07:40 ==
PROVIDERS: PCP Emergency Medicine; Visit Provider Surgery
DX: Z11.59 Encounter for screening for other viral diseases (principal); Z01.818 Encounter for other preprocedural examination
CPT/HCPCS: U0003

== ENCOUNTER 2020-06-23 07:15 | Day surgery (SDC) | payer MEDICARE, BC, SELFPAY ==
[2020-06-23 07:25] VITALS: BP 129/86; PULSE 66; RESP 16; TEMP 36.3; O2SAT 95
[2020-06-23] MEDS: Lactated Ringers 1,000 ML 80 ML IV (07:51)
--- NOTE | 2020-06-23 08:32 | BOWEL_PTH ---
PATIENT: Kelli Mast LOC: [facility] U#:[id number] AGE/SX: 70/M ROOM: RE06/23/[address]: Farzaneh Linn : 1950 BED: DIS: 06/23/2020 SPEC #: [id number] RECD: 06/23/20 10:19 STATUS: SAVANNA REQ #: [id number] DAT: 06/23/20 08:[address]: Farzaneh Linn DEPT: Surgical Specimen RECD BY: Jessenia West ENTERED: 06/23/20 10:21 SP TYPE: Bowel OTHR DR: Chao Doran DO Tissues: 1 - BIOPSY BOWEL Procedures: GROSS AND MICRO LEVEL 4 Comments: [id number]
--- NOTE | 2020-06-23 08:55 | W.COLOREPORT ---
Date of service: 06/23/20 Time of Service: 08:56 Colonoscopy Report Date of procedure: 06/23/20 Pre-op diagnosis general: A. polyp/divertic Post-op diagnosis procedure note: same Procedure: CE polypectomy x2 w/ cold forcept Surgeon: Farzaneh Linn Anesthesia proc note operative: MAC Estimated blood loss (mL): 1 Pathology: other Complications: None Disposition: same day Prep: Miralax/Dulcolax Retraction Time: 12 mins Procedure Description: After informed consent was obtained the patient was taken to the procedure room and placed in a left decubitous position. Monitors were applied and a time out was done. The patients name, date of , procedure, allergies to medications and metal in their body was reviewed. The patient was then sedated. Once sedated and comfortable a rectal exam was done. External exam shows old residual hemorrhoidal tags.. Internal exam revealed a normal sphincter tone and no palpable masses. The prostate nl The scope was then introduced and retrofelexed. No internal hemorrhoids were identified. The scope was then advanced to the cecum w/out difficulty. The TI and appendiceal orifice were identified. The prep was good. The scope was then slowly retracted over 12 minutes back into the rectum. Polyps were removed at 30cm. The patient has a 0.75 cm and 0.5 cm. These are flat and have the characteristics of a flat serrated adenoma. They removed piecemeal with a cold biting forcep. All specimens retrieved no bleeding is noted. He has a few small scattered diverticuli in the sigmoid colon of no consequence. There is no signs of active bleeding or infection. The mucosa is pink and healthy. The scope was removed and the patient was woken up and taken back to Same day surgery in stable condition. The patient tolerated the procedure well and there were no immediate complications. Follow up: The patient should follow up in 3 to 5 years pathology pending, unless they develop changes in bowel habits or other new gastrointestinal complaints.
--- NOTE | 2020-06-23 08:57 | PDOC.DSDIS_ITS ---
Discharge Plan Disposition Patient Disposition: HOME Condition: Good Discharge Details Reason For Visit: colon scope Attending Provider: Farzaneh Linn Primary Care Provider: Chao Doran Home Meds and New Rx's Prescriptions: Discontinued polyethylene glycol 3350 17 gram/dose powder 238 g PO ONCE Qty: 238 RF: 0 bisacodyl [Dulcolax (bisacodyl)] 5 mg tablet,delayed release (DR/EC) 5 mg PO ONCE Qty: 4 RF: 0 Discharge Instructions Additional Instructions: Findings:polyp x2 Follow up: repeat in 3-5 yrs. We will send a letter with pathology results in 2 to 3 weeks. Please call if you develop: fevers >101.5 Nausea or Vomiting Abdominal pain that is not transient DAY SURGERY UNIT POST COLONOSCOPY INSTRUCTIONS 1. Because there will be medication in your system for the next 24 hours, you may feel a little sleepy. Your coordination will be affected. Therefore: a. Do not drive or operate dangerous equipment for 24 hours. b. Do not drink alcohol beverages for 24 hours (not even beer). c. Plan to go home and rest for the day. 2. Generally there are no restrictions on your activity after a day or so has gone by, but you may feel a bit fatigued for a few days. 3 After you arrive home you may have a light meal and return to a normal diet as you can tolerate it without feeling sick to your stomach. 4. After surgery, you may feel pain or discomfort. This should be only transient, but if it persists please contact your doctor. 5. If there are any questions regarding the findings of your procedure, please feel free to contact your doctor. 6. If you are unable to contact your doctor with a problem, contact the hospital at [phone]. 7. Continue all your regular medications unless directed otherwise. I understand the above instructions and have no questions. Signature of Patient or Responsible Adult Escort Date/Time Name of Responsible Adult Escort Signature of Nurse Date/Time High Fiber Diet What is Dietary Fiber? All fiber comes from plants, bushes, corrie or trees. Of course, the ones that we eat provide us with fruits, vegetables and grains. There are many different types of fiber but the three that are most important to the health of the body are: Insoluble Fiber This fiber does not dissolve in water, nor is it fermented by the bacteria residing in the colon. Rather, it retains water and in so doing, helps to promote a larger, bulkier and more regular bowel activity. This, in turn, may be important in preventing disorder such as diverticulosis and hemorrhoids, and in sweeping out certain toxins and cancer causing carcinogens. Sources of insoluble fiber are: ? whole grain wheat and other whole grains ? corn bran, including popcorn, unflavored and unsweetened ? nuts and seeds ? potatoes and the skins from most fruits from trees such as apples, bananas and avocados ? many green vegetables such as green beans, zucchini, celery and cauliflower ? some fruit plants such as tomatoes and kiwi Soluble Fiber These fibers are fermented or used by the colon bacteria as a food source or nourishment. When these good bacteria grow and thrive, many health benefits occur in both the colon and the body. Soluble fiber is present in some degree in most edible plant foods, but the ones with the most soluble fiber include: ? legumes such as peas and most beans, including soybeans ? oats, rye and barley ? many fruits such as berries, plums, apples bananas and pears ? certain vegetables such as broccoli and carrots ? most root vegetables ? psyllium husk supplement products Prebiotic Soluble Fiber These are relatively newly discovered soluble plant fibers. The technical name for this fiber is inulin or fructan. When these soluble fibers are fermented by the good colon bacteria, some further significant health benefits have been shown to occur by research in many medical centers. These soluble prebiotic fibers occur in significant amounts in: ? asparagus ? yams ? onions ? garlic ? bananas ? leeks ? agave ? chicory and other root vegetables such as [place] artichokes ? wheat, rye and barley (smaller amounts) Benefits of a High Fiber Diet The health benefits of a high fiber diet, consumed on a regular basis and reaching recommended amounts (below), are now fairly well-defined. There are some additional benefits in the early research stage with the prebiotic soluble fibers. What is now known regarding a high fiber diet include: Bowel Regularity A high fiber diet promotes regularity with a softer, bulkier and regular stool pattern. This decreases the chance of hemorrhoids, diverticulosis and perhaps colon cancer. Cholesterol and Reduced Triglycerides The soluble fibers are the ones that will reduce cholesterol levels when used on a regular basis. Psyllium husk and prebiotic soluble fiber will also reduce cholesterol. They may also reduce the incidence of coronary heart disease. Oats, flax seeds and legumes or beans are the recommended fibers. Colon Polyps and Cancer It is still not certain if a high fiber diet helps prevent colon cancer. Considerable research suggests that this may occur. Certainly it makes sense to increase regularity and so speed the movement of cancer causing carcinogens through the bowel. In addition, reducing a heavy meat diet reduces the bile flow from the liver in a favorable way. This, too, reduces the amount of carcinogens that reach and are manufactured in the colon. Finally, a high fiber diet, including prebiotic soluble fiber, increases the integrity and health of the wall of the colon. The risk of cancer may be reduced. Colon Wall Integrity A high fiber diet changes the bacterial makeup of the colon toward a more favorable balance. For instance, it is known that those people with obesity, diabetes type 2 and inflammatory bowel disease have a predominance of bad bacteria in the colon. This, in turn, may render the bowel wall weak and allow bacteria and, indeed, even toxins to seep through. A high fiber diet with a modest reduction in animal and meat products may return the bacterial makeup to a more positive balance. This, in particular, has been seen when the soluble fiber prebiotics are added to the diet. Blood Sugar Soluble fiber such as in legumes (beans), oats and in prebiotic fibers slows the absorption of blood sugar and so helps regulate the sugar in the blood. Insoluble fiber on a regular basis is associated with reduced risk of type 2 diabetes. Weight Loss High fiber diets are more filling and give a sense of fullness sooner than an animal and meat based diet does. In addition, the soluble prebiotic fibers have been shown to turn off the hunger hormones produced in the wall of the gut and to increase the hormones that give a sense of fullness. Those hormones are made in the wall of the gut. New medical research has shown that the bacterial makeup in the colon in overweight people is abnormal to the extent that they manufacture and absorb almost twice the number of calories through the colon wall as do normals. Prebiotic fibers (below) will help change this hormonal balancein a favorable way. Bacteria and the Function of the Colon The colon finishes the digestive process. Hopefully, the waste products move through in a nice regular manner. Insoluble fibers help this process by retaining water and so producing a bulkier, softer stool, which is easy to pass. The additional role of the colon is to provide a home for an enormous number of micro-organisms, mostly bacteria. Recent research has shown that there are over 1,000 species of bacteria with a total bacterial count ten times the number of cells in the body. These bacteria play a major role in keeping the colon wall itself healthy. In addition, these good bacteria produce a very strong immune system for the body. They significantly increase calcium absorption and bone density. They provide other documented benefits. It is the soluble fibers in the diet that are so effective in stimulating the growth of good colon bacteria. How Much is Enough? The amount of fiber in food is measured in grams. National nutritional authorities recommend the following amounts of dietary fiber daily. Under Age 50 Over Age 50 Men 38 grams 30 grams Women 25 grams 21 grams For a week or so, it is best to tally the amount of fiber you are consuming. Boxed and packaged foods will have the amount of fiber per serving on the nutrition label. Which Fibers and Which Foods are Best? As noted, healthy fiber is only found in plants. The three major categories are whole grains, fruits and vegetables. Whole Grains Wheat, oats, barley, wild or brown rice, amaranth, buckwheat, bulgur, corn, millet, quinoa, rye, sorghum, teff and triticals. By far, wheat, oats and wild or brown rice are most common. Always buy whole grain products. White bread, baked goods and rolls almost always are made from wheat flour. Wheat flour is white because most of the fiber, vitamins and other nutrients have been removed. Try not buy enriched grains. What this means is that simple white flour has had vitamins added to it by the automobile damage appraiser. The word, enriched, implies a good and healthy product. On the contrary, enriched means that most of the fiber has been removed and a few vitamins added. Fruits Fruits come from trees such as apple and pear or from bushes or corrie. You should eat a wide variety of fruits, preferably with every meal. In many cases, the skin of a fruit such as apple will contain much of the insoluble fiber while the pulp contains most of the soluble fiber. To the extent possible, buy organic fruits as these will have little or no pesticides. Always wash fruit. Vegetables Eat a wide variety of vegetables. They should be a mainstay of lunch and dinners. Frozen vegetables retain as much nutrition and fiber as fresh vegetables. As with fruit, try to buy organic to reduce any residual pesticide ingestion. Wash fresh vegetables thoroughly. Cruciferous vegetables such as broccoli, Barney sprouts and cauliflower contain certain chemicals such as sulforaphane. This substance has very strong anti-cancer properties and should be eaten frequently. Legumes, Beans, Peas and Soybeans These vegetables have plenty of soluble fiber and should be part of a varied vegetable intake. Beans, in particular, contain a certain type of fiber that may lead to harmless gas or bloating. Nuts and Seeds These are rich sources of fiber and are a good substitute for sweets such as candies and baked sweet goods. While nuts and seeds are rich in fiber, they also contain vegetable fat and so can and do add calories. Read the Labels As noted, fresh and frozen foods are usually better. They have good nutrition a nd few, if any, chemicals added to them. When buying packaged foods and, in particular grains, look for three things: ? The first word on the label should be whole, such as whole wheat or whole grain. ? Check out the calories and the amount of fiber in a serving. ? How many and what other additives or chemicals are added. Fewer is always better. Do you know what each additive does? Some are added not for the benefit of the materials buyer but rather for manufacturers. These could and do include sugar, artificial flavor, chemicals to prevent oxidation and spoilage, emulsifiers to blend the product. You have to be a laborer pullet farm. Fiber Facts, Nuggets and Pearls ? For breakfast you can easily get the day started well by using a high fiber, whole grain cereal. Check the labels. Add fruit such as blueberries and bananas. If you are an egg eater, use whole wheat or grain toast. Adding wheat germ gives you a good fiber kick. ? Always use whole grain or wheat with rolls and sandwiches. Does your fast food store not have them? Perhaps you look elsewhere. Eating an occasional black perez or veggie burger provides variety. ? Snacks should consist of fruit and/or nuts. While nuts are loaded with fiber, they are an energy rich food, meaning they have a lot of calories in a small packet. ? Fruit juices should contain pulp. Clear juices such as clear orange, pear or apple juice contain little fiber and have a lot of fructose. Prune juice is usually high in fiber. ? Homemade soups ? adding fresh or frozen vegetables to a chicken or vegetable stock is a good way to start homemade soup. ? Salads ? adding cooked and then chilled vegetables provide great flavoring to almost any salad. Remember, a [place] salad has lots of cooked corn in it. Small slices of apples or oranges and nuts such as chopped walnuts or sliced almonds always adds taste, variety and fiber to almost any salad. ? Fruit ? Try to eat fruit of some type with almost every meal. ? Rethink how you place the various foods on your dinner plate. Reducing the portions of the meat or animal food portion to the side with equal or more portions of vegetables, legumes and fruits portion always allows for more fiber. There was never anything magic about making the meat or animal food portion the main part of the dinner plate. Eating from smaller plates can, over time, trick your mind and intermediate project manager habit of using a dinner plate. Again, there is nothing magic in an 11, 12, or 13 inch dinner plate. Fiber Supplements There are a variety of fiber supplements available on the food or pharmacy shelves. Psyllium This soluble plant fiber has been used in [place] for over 2,000 years. It is a soluble fiber with mucilage in it. This acts to retain a lot of water and also is fermented by colon bacteria. When 7 grams a day are used, it does lower cholesterol. Metamucil in various forms is psyllium. Methyl Cellulose All the cellulose products come from finely ground wood chips which are then treated in a variety of ways such as boiling in acids. Methyl cellulose is an insoluble fiber which does dissolve in water. It is also an emulsifier, meaning it blends oils and water. Citrucel is methyl cellulose (MC). MC may not be appropriate for Crohn?s disease or ulcerative colitis as several medical studies have shown that certain emulsifiers dissolve the mucous lining of the colon in animals prone to Crohn?s disease. This then allows bacteria to invade the underlying tissue. Inulin Inulin is a soluble prebiotic fiber found in many foods and which are fermented mostly in the left side of the colon. It is available in a supplement as generic inulin and in Fiber Choice. Oligofructose FOS These are also prebiotic fibers. They are fermented very quickly in the right side of the colon. Prebiotin This product is a combination of oligofructose, which feeds the bacteria in the right side of the colon and inulin, which does the same in the left side of the colon. There seems to be a benefit for this particular formula based on medical research. Prebiotic Soluble Fiber These may be the healthiest of all the soluble fibers. They grow in many plants and have had a great deal of research done on them in the last 10-15 years. These fibers are found in asparagus, yams and other root vegetables such as chicory, garlic, onion, leeks and in smaller amounts in wheat. This research has shown the following: ? Increase in good and decrease in bad colon bacteria ? Increase calcium absorption and enhanced bone mass ? Enhanced immune system ? Appetite and weight control by changing the hormone appetite signals to the brain ? May decrease colon cancer incidence ? Reduce or correct a leaky colon Eating a wide variety of plant food up to the recommended amount will likely give you enough prebiotic fiber. Supplements such as Prebiotin can be added to the diet. Short Chain Fatty Acids (SCFA) Some rather remarkable research findings have shown that one of the benefits of ingesting a lot of soluble fiber, in particular the prebiotic ones, results in larger amounts of SCFAs in the colon. These SCFAs are made by the good bacteria in the colon such as Bifidobacter and Lactobacillus. These small molecules have been shown to do the following: ? Enhance the health and integrity of the colon wall ? Provide nourishment for the cells that actually line the colon ? Increases the acidity of the colon which is a very real health benefit ? Stabilize blood sugar for diabetics ? Reduce blood cholesterol and triglyceride ? Significantly enhance immunity ? May be a benefit for Crohn?s disease and ulcerative colitis patients Fiber and Gas Everyone has intestinal gas and that is a good thing. It means that bacteria, hopefully the good ones, are thriving. The normal amount of flatus passed each day depends on sex and what is eaten. The normal number of flatus is 10-20 times a day. When the bacteria that make intestinal gases are growing, it also means that other good bacteria are using the same fibers to grow and produce multiple health benefits, including the production of healthy short-chain fatty acids. These substances are produced quietly in the colon and produce many health-related outcomes. Soluble fiber should always be used in a gradual manner. If too much is consumed at any one time, then excess, but harmless, intestinal gas can occur. People with irritable bowel syndrome are particularly prone to bloating and mild cramping. In this instance, soluble fiber in the diet or supplement should be used in small doses and increased gradually. Finally, prebiotic fibers tend to cause the production of short-chain fatty acids which acidify the colon. This, in turn, reduces or stops the growth of bacteria that make the smelly hydrogen sulfide gases that produce noxious flatus. People who consume many vegetables with prebiotics or take a prebiotic fiber supplement often have non-odoriferous flatus. Fiber and Irritable Bowel Syndrome Irritable bowel syndrome (IBS) is one of the most common disorders of the lower digestive tract. The symptoms of IBS can be quite varied. They can be a mix of several symptoms such as constipation, diarrhea, crampy abdominal discomfort, bloating and gas. An attack of IBS can be triggered by emotional tension and anxiety, poor dietary habits and certain medications. It is now known that infections in the intestine can lead to long-term IBS symptoms. Increased amounts of fiber in the diet can help relieve the symptoms of irritable bowel syndrome by producing soft, bulky stools. This helps to normalize the time it takes for the stool to pass through the colon. Recent medical research with newer techniques has shown some surprising and dramatic findings for IBS patients. Specifically, there is a very significant and abnormal shift of bacteria from those that provide health benefits to those bad bacteria that we really do not want in the gut. The technical name for this bad group of bacteria is called Firmicutes. Along with this abnormal bacterial collection, there is a smoldering low-grade inflammation in the gut wall that may contribute to symptoms. The goal for IBS patients should be to gradually increase the soluble dietary fibers in the diet so as to promote the growth of good bacteria and so suppress the bad ones along with the associated inflammation. IBS patients need to be careful of the amount of soluble fiber they consume. The reason for this is that, while the good colon bacteria thrive on these fibers and produce health benefits, other gas-forming bacteria may generate excessive but harmless gas and subsequent bloating. Thus, soluble plant fibers or a dietary prebiotic supplement should be taken in small initial doses and then gradually increased to tolerance. Fiber and Colon Polyps/Cancer Colon cancer is a major health problem. This disease is most common in Western cultures. It is not seen very often in rural cultures where the diet is mostly plant based. Usually, colon cancer starts out as a colon polyp, a benign mushroom-shaped growth. In time it grows, and in some people it becomes cancerous. Colon cancer is usually always curable if polyps are removed when found or if surgery is performed at an early stage. It is now known that people can inherit the risk of developing colon cancer, but diet is important, too. As noted, there is a very low rate of colon cancer in residents of countries where grains are unprocessed and retain their fiber. It seems that in the [place] world, cancer-containing agents (carcinogens) remain in contact with the colon wall for a longer time and in higher concentrations. So, a large bulky stool may act to dilute these carcinogens by moving them through the bowel more quickly. Less carcinogenic exposure to the colon may mean fewer colon polyps and less cancer. A very current review of the entire world?s literature on the effect of fiber on colon polyps and cancer prevention has shown rather clearly that for every 10 grams of fiber added to the diet, there is a 10% reduction in incidence of colon cancer. So the recommended 30 gram fiber diet would result in a 30% less chance of getting these tumors. There are also substances produced in the colon by the good bacteria that seem to retard certain pre-cancer factors from developing. They are called short- chain fatty acids (SCFA). See above for description of SCFAs. A high fiber diet increases these substances. So, the combination of dietary fiber and the production of short-chain fatty acids have a clear health benefit. Fiber and Diverticulosis Prolonged, vigorous contraction of the colon over a long period of time may result in diverticulosis. This increased pressure causes small and, eventually, larger ballooning pockets to form. These pockets by themselves cause no problem. However, sometimes they become infected (diverticulitis) or even break open (perforate) causing infection or inflammation within the abdomen (peritonitis). A high fiber diet increases the bulk in the stool and thereby reduces the pressure within the colon. By so doing, the formation of pockets may be reduced or possibly even stopped. In the past, many physicians were fearful that seeds as in tomatoes, nuts or berries were harmful and could get inside these pockets and rattle around, causing damage. We now know that this has never been the case and that these foods contain lots of fiber and are actually beneficial for diverticulosis patients. Certain bulking agents such as psyllium are traditional types of bulk producing supplements. Psyllium is a soluble fiber. Combining it with insoluble fiber as in wheat bran or corn bran (no gluten) can enhance this bulking effect even more. A product containing a prebiotic, psyllium and wheat bran is probably a very good combination for bowel regularity. Prebiotin Regularity/Diverticulosis is one such product. Inflammatory Bowel Disease (IBD) IBD means Crohn?s Disease (CD) or Ulcerative Colitis (UC). CD is an inflammation of the lower small bowel and/or the colon. Bacteria actually invade and cause inflammation in the entire wall of the intestine. UC, on the other hand, is an inflammation just of the lining of the colon. It usually s tarts in the rectum and left colon and may spread to the entire colon from there. It is now known that in both CD and UC that the bacterial make up is abnormal. This means that there are significantly more of the bad bacteria present than the good ones. These abnormal bacteria are called Firmicutes. Fiber and Crohn?s Disease There is now some information in the medical literature on what type of diet may be harmful and what may help Crohn?s Disease. A reduction in red meat is likely helpful. So is reducing the fat in the diet, including vegetable oils. More importantly, people who had low fiber ingestion in the diet had a greater chance of getting CD. So, a gradual increase in the amount of fiber is likely helpful in hopefully preventing CD. This should always be done in conjunction with the physician. It should be done gradually and should include soluble fibers which fertilize the best colon bacteria. The good bacteria grow and push out the bad ones. These good bacteria provide short chain fatty acids, which can help heal the bowel wall. Prebiotics such as Prebiotin are available. Fiber and Ulcerative Colitis We still do not have strong evidence in the medical literature on what is the best diet for UC. Eating plenty of soluble fiber, including prebiotic fibers will nourish the best colon bacteria. It is hoped that this will result in a decrease in the bad or Firmicutes bacteria. It is well-known that when the good bacteria proliferate that they produce lots of acid substances called short chain fatty acids (SCFA). The SCFAs actually nourish the cells of the colon wall, the very ones that become inflamed in UC. In addition, when the colon contents become acid, the smelly sulfide gases are not produced and the flatus becomes less noxious and may even have no smell at all. This may have a beneficial effect on the inflammation. Prebiotics such as Prebiotin are the best type of soluble fiber. Activity:: No lifting over 20 pounds or strenuous activities x24 hours Diet:: Small light meals x24 hours Discharge Orders Discharge Orders: Discharge Order (Routine); Ordered 06/23/20 Ordered By: Farzaneh Linn DS: Diagnosis Discharge Diagnosis (1) Diverticulosis of colon without diverticulitis: Status: Chronic (2) Adenomatous polyp of sigmoid colon: Status: Chronic
[2020-06-23 09:33] VITALS: BP 113/78; PULSE 54; RESP 16; TEMP 36.6; O2SAT 98
== END 2020-06-23 09:45 | disposition home or self-care (01) ==
PROVIDERS: PCP Emergency Medicine; Visit Provider Surgery
PROC: 0DJD8ZZ Inspection of Lower Intestinal Tract, Via Natural or Artificial Opening Endoscopic (ICD-10-PCS; CPT 45378; principal; 2020-06-23 08:15)
DX: Z12.11 Encounter for screening for malignant neoplasm of colon (principal); D12.5 Benign neoplasm of sigmoid colon; K57.30 Diverticulosis of large intestine without perforation or abscess without bleeding; G47.33 Obstructive sleep apnea (adult) (pediatric)
CPT/HCPCS: 45380; 88305

== ENCOUNTER 2021-09-11 00:59 | Outpatient (CLI) | payer MEDICARE, BC, SELFPAY ==
--- NOTE | 2021-09-11 06:45 | DI.RAD_ITS ---
Exam(s) XR LUMBAR SPINE COMPLETE EXAM: XR LUMBAR SPINE COMPLETE CLINICAL HISTORY: low back pain, m54.50. TECHNIQUE: 2D digital imaging was performed. Five standard views. COMPARISON: CR XR HIP LT COMPLETE AP PELVIS from 11/11/2019 CR XR HIP LT COMPLETE AP PELVIS from 11/11/2019 FINDINGS: BONES: No fracture or destructive lesion. Vertebral bodies are unremarkable. Mild facet hypertrophy i dentified L4-5 and L5-S1. Question of right L5 spondylolysis. No spondylolisthesis.. Small endplat e osteophytes, greater on the right at L2-3 and L3-4. DISKS: Mild narrowing of the L4-5 and L5-S1 discs. Remaining intervertebral disc spaces are maintain ed. ALIGNMENT: Lumbar spinal alignment is within normal limits. SOFT TISSUE: Normal. IMPRESSION: Mild degenerative disc changes and facet degenerative changes. Question of right L5 spondylolysis. DATA REPOSITORY: RADIATION DOSE DELIVERED:
--- NOTE | 2021-09-11 06:45 | DI.RAD_ITS ---
Exam(s) XR KNEE RT 3V AP,LAT,MAYELA EXAM: XR KNEE RT 3V AP,LAT,MAYELA CLINICAL HISTORY: right knee pain,m25.569. TECHNIQUE: 2D digital imaging was performed. COMPARISON: No exams were available for comparison FINDINGS: BONES: No acute fracture is present. No bony destructive lesion is seen. JOINTS: The knee is normally aligned. No joint effusion is seen. Mild periarticular spurring. Joint space is well maintained. SOFT TISSUE: Normal. IMPRESSION: Minimal degenerative changes. DATA REPOSITORY: RADIATION DOSE DELIVERED:
== END 2021-09-11 01:19 ==
PROVIDERS: PCP Emergency Medicine; Visit Provider Emergency Medicine
DX: M54.59 Other low back pain (principal); M25.561 Pain in right knee; M47.816 Spondylosis without myelopathy or radiculopathy, lumbar region; M47.817 Spondylosis without myelopathy or radiculopathy, lumbosacral region
CPT/HCPCS: 73562; 72110

== ENCOUNTER 2022-12-06 01:25 | Outpatient (CLI) | payer MEDICARE, BC, SELFPAY ==
[2022-12-06 12:29] LABS: Abs Immature Grans 0.01 10^3/uL (0.0-0.06); Absolute Basophil Count 0.03 10^3/uL (0.0-0.2); Absolute Eosinophil Count 0.22 10^3/uL (0.0-0.7); Absolute Lymphocyte Count 1.19 10^3/uL (1.2-3.4); Absolute Monocyte Count 0.57 10^3/uL (0.1-0.8); Absolute Neutrophil Count 3.47 10^3/uL (1.2-6.7); Basophils % 0.5; HCT 46.4 % (40.0-50.0); HGB 15.3 g/dL (13.5-17.5); Immature Grans % 0.2; Lymphocytes % 21.7; MCH 31.4 pg (27.0-33.0); MCV 95 fL (80-95); MPV 10.7 fL (8.0-11.0); Monocytes % 10.4; Neutrophils % 63.2; Platelet Count 157 10^3/uL (130-400); RBC 4.88 10^6/uL (4.36-5.78); RDW-SD 45.1 fL; WBC 5.49 10^3/uL (4.4-10.8)
[2022-12-06 13:19] LABS: ALT 23 U/L (16-63); AST 20 U/L (15-37); Albumin 4.1 g/dL (3.4-5.0); Alkaline Phosphatase 62 U/L (46-116); Anion Gap 8.2 mmol/L (3-11); BUN 14 mg/dL (7-18); Bilirubin, Total 1.5 mg/dL (0.2-1.0); CO2 26.8 mmol/L (21.0-32.0); CREATININE 1.2 mg/dL (0.70-1.30); Calcium 9.3 mg/dL (8.5-10.1); Calculated LDL 51 mg/dL (<100); Chloride 108 mmol/L (98-107); Cholesterol 115 mg/dL (<200); Estimated GFR 65.06 (mL/min/1.73m2); Glucose 102 mg/dL (74-106); HDL Cholesterol 54 mg/dL (40-60); Potassium 4.3 mmol/L (3.5-5.1); Sodium 143 mmol/L (136-145); TSH (W/Ref FT4) 1.29 uIU/mL (0.36-3.74); Triglyceride 50 mg/dL (<150); Vitamin B12 581 pg/mL (193-986)
[2022-12-07 21:19] LABS: PSA, Screening 1.4 ng/mL (<=6.5)
== END 2022-12-06 01:26 | disposition home or self-care (01) ==
LOC: LOS 01:26
PROVIDERS: PCP Family Medicine; Visit Provider Family Medicine
DX: E78.5 Hyperlipidemia, unspecified (principal); R42 Dizziness and giddiness; G60.9 Hereditary and idiopathic neuropathy, unspecified; G45.3 Amaurosis fugax; R35.1 Nocturia; N40.1 Benign prostatic hyperplasia with lower urinary tract symptoms; Z12.5 Encounter for screening for malignant neoplasm of prostate
CPT/HCPCS: 36415; 80053; 80061; 84153; 82607; 84443; 85025

== ENCOUNTER → 2023-06-13 08:59 | Outpatient (BNVA) | payer MEDICARE, BC, SELFPAY | PROVIDERS: PCP Family Medicine; Referring Provider Family Medicine; Visit Provider Surgery | DX: Z12.11 Encounter for screening for malignant neoplasm of colon (principal); D12.6 Benign neoplasm of colon, unspecified | CPT/HCPCS: 99212 ==

== ENCOUNTER 2023-07-02 09:02 | Day surgery (SDC) | payer MEDICARE, BC, SELFPAY ==
--- NOTE | 2023-07-01 16:59 | W.COLOREPORT ---
Date of service: 07/02/23 Time of Service: 11:11 Colonoscopy Report Date of procedure: 07/02/23 Pre-op diagnosis general: Serrated adenoma Post-op diagnosis procedure note: other (same + ext hemorrhoids ) Surgeon: Farzaneh Linn Anesthesia Type: General:No Airway Estimated blood loss (mL): 0 Pathology: none sent Complications: None Disposition: same day Prep: Miralax/Dulcolax Retraction Time: 11 Procedure Description: After informed consent was obtained the patient was taken to the procedure room and placed in a left decubitous position. Monitors were applied and a time out was done. The patients name, date of , procedure, allergies to medications and metal in their body was reviewed. The patient was then sedated. Once sedated and comfortable a rectal exam was done. External exam was normal. He does have some external hemorrhoidal tags. Internal exam revealed a normal sphincter tone and no palpable masses. The prostate normal The scope was then introduced and retrofelexed. No internal hemorrhoids were identified. The scope was then advanced to the cecum without Difficulty. The TI and appendiceal orifice were identified. The prep was BBPS 3 in all segments for total of 9. The scope was then slowly retracted over 11 minutes back into the rectum. He does have a few small scattered diverticula. There is no signs of active bleeding or infection today. Unfortunately, once we reached about 50 cm patient does start to cough, and may have possibly aspirated. The procedure at that point was terminated for patient's safety. No large masses or polyps were visualized, anything smaller than 5 mm may have been missed. the scope was removed and the patient was woken up and taken back to Same day surgery in stable condition. The patient tolerated the procedure well and there were no immediate complications. Repeat in 5 yrs time, unless new s/s develop. Follow up: The patient should follow up in 5years unless they develop changes in bowel habits or other new gastrointestinal complaints.
--- NOTE | 2023-07-01 17:00 | PDOC.DSDIS_ITS ---
Date of service: 07/02/23 Time of Service: 12:05 Discharge Plan Disposition Patient Disposition: Home Condition: Good Discharge Details Reason For Visit: colon scope Attending Provider: Farzaneh Linn Primary Care Provider: Aleida Quigley Home Meds and New Rx's Prescriptions: Continued aspirin 81 mg tablet,delayed release (DR/EC) 81 mg PO DAILY rosuvastatin [Crestor] 10 mg tablet 10 mg PO DAILY Qty: 90 3RF Discontinued polyethylene glycol 3350 17 gram/dose powder 238 g PO ONCE Qty: 238 0RF Rx Instructions: take per colonoscopy instructions bisacodyl [Dulcolax (bisacodyl)] 5 mg tablet,delayed release (DR/EC) 5 mg PO ONCE Qty: 4 0RF Rx Instructions: take per colonoscopy instructions Discharge Instructions Instructions: Aspiration Pneumonia (DC) Additional Instructions: DSU Colonoscopy Post- Op Instructions Instructions for Everyone who is given Anesthesia: For your safety, please do the following for the next twenty-four (24) hours: *Do Not operate a motor vehicle (car, truck, motorcycle, etc.) *Do Not drink alcoholic beverages or use any recreational drugs for the first 24 hours or while taking pain medications. The medications in your body may have a reaction that can be dangerous. *Do Not make any important decisions or sign any important papers. Findings: sigmoid diverticula- mild Follow up: 5 years time -gargle w/ salt water 4-5 times a day for next 72 hrs -see anesthesia aspiration sheet 1. No lifting over 20 pounds or strenuous activity for the first 24 hours after your procedure. After 24 hours there are no restrictions on your activity but you may feel fatigued for a few days. 2. After you arrive home you may have a light meal and return to your normal diet as you can tolerate it without feeling sick to your stomach. 3. You may have a bloated, gaseous feeling in your belly (abdomen) after a colonoscopy. Passing gas and belching will help. Walking or lying down on your left side with your knees flexed may relieve the discomfort. Call the office at [phone] (Office) or [phone] (Hospital) right away if you notice any of the following: a.Vomiting of blood or ?coffee ground stools?. b.Rectal bleeding 1Tbsp, blood clots or continuous bleeding. c.Severe belly (abdominal) pain. d.A hard distended belly (abdomen) and an inability to pass gas. 4. Please don?t expect to have a normal BM (bowel movement) for 2-3 days after your procedure. 5. If there are questions regarding the findings of your procedure, please contact your doctor 6. If you are unable to contact your doctor with a problem, contact the hospital at [phone]. 7. Continue all your regular medications unless directed otherwise. I understand the above instructions and have no questions. Signature of Patient or Adult Escort Name of Responsible Adult Escort Signature of Nurse Date/Time Activity:: See above Diet:: See above Discharge Orders Discharge Orders: Discharge Order (Routine); Ordered 07/02/23 Ordered By: Farzaneh Linn DS: Diagnosis Discharge Diagnosis (1) Idiopathic peripheral neuropathy: Status: Chronic (2) Obesity: Status: Chronic (3) Serrated adenoma of colon: Status: Acute Asessment and Plan: The patient is seen and examined after their colonoscopy.? The patient has been able to pass gas.? They are not having abdominal pain.? They have been able to tolerate liquids and a snack.? They do not have any nausea or vomiting.? They are not having any chest pain or shortness of breath.??? They are not having any rectal bleeding. Their vital signs have been stable-see nursing notes. The patient did have some aspiration during the procedure. His sats are normal. Does complain of a sore throat. He will be given aspiration precaution sheet by anesthesia. We discussed findings during their colonoscopy, and any biopsies that were done/polyps that were removed. The patient will be sent a letter with any biopsy results, and when to repeat the colonoscopy.-see discharge instructions. Patient was given explicit instructions to follow-up regarding colonoscopy-refer to discharge instructions.? We reviewed resumption of medications. Patient verbalized understanding and discharged in stable and satisfactory condition- See nursing notes. (4) Positional sleep apnea: Status: Chronic (5) Hyperlipemia: Status: Acute (6) Orthostatic hypotension: Status: Acute (7) Cognitive changes: Status: Chronic (8) Aspiration into airway: Status: Acute
[2023-07-02] VITALS (8 sets, daily range): BP systolic 114–160; BP diastolic 82–90; PULSE 51–65; RESP 16–20; TEMP 36.2–36.6; O2SAT 95–97; BMI 33.7
[2023-07-02] MEDS: Lactated Ringers 1,000 ML 80 ML IV (09:36)
--- NOTE | 2023-07-02 09:44 | W.ANESPRE ---
General Info Date of Service Date Performed: 07/02/23 Height: 5 ft 10 in Weight: 106.8 kg Body Mass Index (BMI): 33.7 Surgical Procedure: Operation Date: 07/02/23 11:05 Proposed Procedure Side Surgeon becki Linn, Meds Allergies and Home Medications Allergies Allergy/AdvReac Type Severity Reaction Status Date / Time No Known Allergies Allergy Verified 07/02/23 09:24 Home Medication Medication Instructions Recorded aspirin 81 mg tablet,delayed 81 mg PO DAILY 04/05/21 release rosuvastatin 10 mg tablet (Crestor) 10 mg PO DAILY #90 tabs 11/19/22 Current Visit Medications: Current Medications Generic Name Dose Route Start Last Admin Trade Name Freq PRN Reason Stop Dose Admin Hyoscyamine Sulfate 0.125 mg 07/02/23 09:27 Hyoscyamine 0.125 Mg Sl/Oral/Chew SL 08/01/23 09:26 DIRECTED PRN Ringer's Solution 1,000 mls @ 80 mls/hr 07/02/23 06:00 07/02/23 09:36 IV 07/31/23 23:59 80 mls/hr INFUSION SELVIN Administration IV Miscellaneous Supplies 1 each 07/02/23 06:00 Iv Access IV 07/31/23 23:59 DIRECTED SELVIN Ondansetron HCl 4 mg 07/02/23 09:27 Ondansetron 4 Mg/2 Ml Vial IVP 08/01/23 09:26 Q4H PRN PRN Nausea / Vomiting Sodium Chloride 0 ml 07/02/23 06:00 Normal Saline Flush 10 Ml Syr IV 07/31/23 23:59 PRN PRN Sodium Chloride 0 ml 07/02/23 06:00 Normal Saline 10 Ml Vial IJ 07/31/23 23:59 DIRECTED PRN Sterile Water 0 ml 07/02/23 06:00 Water,Injection,Sterile 10 Ml Vial IJ 07/31/23 23:59 DIRECTED PRN PFSH Active Problems Active Problems: Problem Status Onset Code Idiopathic peripheral neuropathy 11/04/17 G60.9 Obesity E66.9 BPH associated with nocturia N40.1, R35.1 Serrated adenoma of colon ~06/2020 D12.6 Positional sleep apnea G47.39 Hyperlipemia E78.5 Orthostatic hypotension I95.1 Cognitive changes R41.89 Medical History Medical History 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 Amaurosis fugax 2020, negative work-up Chest pain NEgative MPI 08/07 Depressive disorder 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 - 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 Surgical History Surgical History Colonoscopy - [facility] (03/15/17) [place] 06/23/20 History of hip replacement left Orchiectomy, Radical left Tobacco Smoking/Tobacco Use Status: Never Passive smoking exposure: Yes Alcohol Alcohol Intake: current Alcohol intake frequency: holidays/special occasions only Substance Use Substance use: Never Substance use type: does not use Vital Signs and Lab Results Vital Signs Most Recent Vital Signs in EMR: Most Recent Vital Signs Temp Pulse Resp BP Pulse Ox 36.4 C L 65 16 116/89 97 07/02/23 09:21 07/02/23 09:21 07/02/23 09:21 07/02/23 09:21 07/02/23 09:21 Lab Results Blood Type / Crossmatch: No Data to Display Complete Blood Count: No Data to Display Complete Metabolic Panel: No Data to Display Liver Function Panel: No Data to Display Coagulation Panel: No Data to Display Cardiac Panel: No Data to Display Arterial Blood Gas: No Data to Display Venous Blood Gas: No Data to Display Pancreas Panel: No Data to Display Thyroid Panel: No Data to Display Infectious Disease: No Data to Display Blood Cultures: No Data to Display Toxicology Panel: No Data to Display Imaging and Studies Imaging and Studies Study information below may be from another EMR and interpreted by another provider. Please see original notes in EMR for more complete details. Stress Test Summary: 08/06/2018: Impressions: - Minor arrhythmias during the stress test which resolved appropriately. - Normal myocardial perfusion and contraction. Summary: 1. Myocardial perfusion imaging: No myocardial perfusion defects noted. 2. The calculated left ventricular ejection fraction after stress: 69%. LV global systolic function is normal. No left ventricular regional motion abnormality. 3. Stress ECG conclusions: The stress ECG is negative. 4. Stress: The target heart rate was achieved. There is a normal resting blood pressure with an appropriate response to stress. The patient experienced no chest pain during stress. Exercise capacity is excellent (12 METS). Anesthesia Assessment and Plan Anesthesia History Personal History: No History of Anesthesia Complications Family History: No Family History of Anesthesia Complications Exercise Tolerance Exercise Tolerance: Metabolic Equivalents>4 Pertinent Negatives Pertinent Negatives: No Symptoms of GERD, No Major Cardiovascular Symptoms or Complaints and No Major Pulmonary Symptoms or Complaints Cardiac & Pulmonary Exam Cardiac Exam: Normal S1/S2 Heart Sounds Pulmonary Exam: Clear Bilateral Breath Sounds Implantable Cardiac Device Does patient have a Pacemaker or an ICD?: No Airway Exam Known Difficult Airway: No Mallampati Class: 1 Mouth Opening: Normal (> 3cm) Thyromental Distance: Greater than 3 cm Neck Range of Motion: Full ROM Neck Circumference: Normal Teeth Condition: Normal Dentition ASA Classification ASA Score: ASA 2 Emergency Case?: No NPO Status NPO Status: NPO Clears >2 hours, Solids >8 hours Anesthesia Plan Resuscitation Status: Full Code Anesthesia Technique: General Anesthesia Airway Planned: Natural Airway Monitors Used: Standard Monitors
[2023-07-02] MEDS: Albuterol 2.5 MG/3 ML INH SOLN VIAL UPD (12:41)
--- NOTE | 2023-07-02 13:29 | W.ANESPOSTOP ---
Postoperative Evaluation Date, Time and Location Date Performed: 07/02/23 Time Performed: 13:22 Patient Location: Day Surgery Unit Vital Signs Most Recent Imported Vital Signs: Most Recent Vital Signs Temp Pulse Resp BP Pulse Ox 36.3 C L 53 L 16 129/84 95 07/02/23 12:10 07/02/23 12:10 07/02/23 12:10 07/02/23 12:10 07/02/23 12:10 Pain Score Most Recent Pain Score: Most Recent Pain Score Pain Level 0 07/02/23 11:35 Assessment Mental Status: Awake (Alert & Oriented to Patient Baseline) Airway and Respiratory Function: Abnormal Respiratory exam (See explanation) (Potential aspiration during procedure, patient provided discharge education and handout, present) Cardiovascular Function: Hemodynamically Stable Hydration Status: Adequately Hydrated Nausea & Vomiting: No Nausea or Vomiting Pain: Pt. Denies Any Pain Peripheral Nerve Block: Patient did not receive a nerve block Postoperative Comments:: Noted expiratory wheezes on left side during auscultation prior to discharge, patient reports no shortness of breath or tachypnea
== END 2023-07-02 13:50 | disposition home or self-care (01) ==
PROVIDERS: PCP Family Medicine; Visit Provider Surgery
PROC: 0DJD8ZZ Inspection of Lower Intestinal Tract, Via Natural or Artificial Opening Endoscopic (ICD-10-PCS; CPT 45378; principal; 2023-07-02 11:00)
DX: Z12.11 Encounter for screening for malignant neoplasm of colon (principal); Z86.010 Personal history of colon polyps; K64.4 Residual hemorrhoidal skin tags; Z53.8 Procedure and treatment not carried out for other reasons
CPT/HCPCS: G0104; 94640; J7613

== ENCOUNTER → 2023-11-15 00:53 | Outpatient (CLI) | payer MEDICARE, BC, SELFPAY ==
--- NOTE | 2023-11-15 09:15 | DI.MRI_ITS ---
Exam(s) MR BRAIN WO EXAM: MR BRAIN WO CLINICAL HISTORY: memory loss,COGNITIVE CHANGES,R41.89 TECHNIQUE: Multiplanar multisequence MRI of the brain was performed. COMPARISON: No exams were available for comparison FINDINGS: VENTRICLES AND EXTRA AXIAL SPACES: Normal in size and morphology for the patient's age. MIDLINE SHIFT: None. CEREBRAL PARENCHYMA: No focus of restricted diffusion to suggest acute infarct. No space-occupying le herbert identified. No significant white matter changes.. HEMORRHAGE: None. BRAINSTEM/CEREBELLUM: Normal. VISUALIZED PARANASAL SINUSES/MASTOIDS:Clear. Vasculature: Normal flow void. PITUITARY GLAND: Unremarkable. ORBITS: Unremarkable. IMPRESSION: Unremarkable MRI of the brain. DATA REPOSITORY:
== END ==
PROVIDERS: PCP Family Medicine; Visit Provider Family Medicine
DX: R41.89 Other symptoms and signs involving cognitive functions and awareness (principal)
CPT/HCPCS: 70551

== ENCOUNTER 2024-05-18 13:39 | Outpatient (REF) | payer MEDICARE, BC, SELFPAY ==
[2024-05-18 21:36] LABS: Abs Immature Grans 0.02 10^3/uL (0.0-0.06); Absolute Basophil Count 0.03 10^3/uL (0.0-0.2); Absolute Eosinophil Count 0.24 10^3/uL (0.0-0.7); Absolute Lymphocyte Count 0.86 10^3/uL (1.2-3.4); Absolute Monocyte Count 0.82 10^3/uL (0.1-0.8); Absolute Neutrophil Count 3.12 10^3/uL (1.2-6.7); Basophils % 0.6 %; Eosinophils % 4.7 %; HCT 44.5 % (40.0-50.0); HGB 15.6 g/dL (13.5-17.5); Immature Grans % 0.4 %; Lymphocytes % 16.9 %; MCH 33.1 pg (27.0-33.0); MCHC 35.1 % (32.0-36.0); MCV 95 fL (80-95); MPV 11.7 fL (8.0-11.0); Monocytes % 16.1 %; Neutrophils % 61.3 %; Platelet Count 153 10^3/uL (130-400); RBC 4.71 10^6/uL (4.36-5.78); RDW 12.6 % (11.8-14.1); RDW-SD 43.8 fL; WBC 5.09 10^3/uL (4.4-10.8)
[2024-05-18 21:48] LABS: ALT 134 U/L (16-63); AST 84 U/L (15-37); Albumin 3.9 g/dL (3.4-5.0); Alkaline Phosphatase 122 U/L (46-116); Anion Gap 11.4 mmol/L (3-11); BUN 14 mg/dL (7-18); Bilirubin, Total 1.76 mg/dL (0.2-1.0); CO2 23.6 mmol/L (21.0-32.0); CREATININE 1.3 mg/dL (0.70-1.30); Chloride 109 mmol/L (98-107); Estimated GFR 58.37 (mL/min/1.73m2); Glucose 100 mg/dL (74-106); Lipase 60 U/L (16-77); Potassium 4.3 mmol/L (3.5-5.1); Sodium 144 mmol/L (136-145); Total Protein 6.7 g/dL (6.4-8.2)
== END 2024-05-18 13:40 | disposition home or self-care (01) ==
LOC: LBN 13:39
PROVIDERS: PCP Family Medicine; Visit Provider Physician Assistant
DX: R10.9 Unspecified abdominal pain (principal)
CPT/HCPCS: 80053; 83690; 85025

== ENCOUNTER 2024-05-19 11:44 | Outpatient (REF) | payer MEDICARE, BC, SELFPAY ==
[2024-05-19 22:27] LABS: Campylobacter PCR Negative (Negative); Salmonella PCR Negative (Negative); Shiga Toxin PCR Negative (Negative); Shigella/Enteroinvasive Ecoli Negative (Negative)
== END 2024-05-19 11:45 | disposition home or self-care (01) ==
LOC: NCHCN 11:44
PROVIDERS: PCP Family Medicine; Visit Provider Physician Assistant
DX: R10.9 Unspecified abdominal pain (principal); R19.7 Diarrhea, unspecified
CPT/HCPCS: 87329; 87505; 87177

== ENCOUNTER 2024-05-22 16:46 | Outpatient (REF) | payer MEDICARE, BC, SELFPAY ==
[2024-05-22 21:24] LABS: Bilirubin Negative (Negative); Blood Negative (Negative); Clarity Clear (Clear); Glucose Negative (Negative); Ketones Negative (Negative); Leukocyte Esterase Negative (Negative); Nitrite Negative (Negative); Specific Gravity >= 1.030 (1.005-1.025); pH 6.5 (5-8)
[2024-05-25 11:30] LABS: Hepatitis A Antibody IgM Negative (Negative); Hepatitis B Core Antibody Negative (Negative); Hepatitis B surface Ag Negative (Negative); Hepatitis C Ab w Rflx HCV PCR Negative (Negative)
== END 2024-05-22 16:47 | disposition home or self-care (01) ==
LOC: LBN 16:46
PROVIDERS: Physician Assistant; PCP Family Medicine; Visit Provider Family Medicine
DX: K75.9 Inflammatory liver disease, unspecified (principal); R10.13 Epigastric pain; R19.7 Diarrhea, unspecified; R94.5 Abnormal results of liver function studies; R82.998 Other abnormal findings in urine
CPT/HCPCS: 86704; 86709; 86803; 87340; 81003

== ENCOUNTER → 2024-05-26 00:53 | Outpatient (CLI) | payer MEDICARE, BC, SELFPAY ==
--- NOTE | 2024-05-26 06:45 | DI.US_ITS ---
Exam(s) US ABDOMEN LIMITED EXAM: US ABDOMEN LIMITED CLINICAL HISTORY: acute hepatitis,inflammatory liver disease,k75.9 TECHNIQUE: Ultrasound abdomen performed using standard protocol. COMPARISON: No exams were available for comparison FINDINGS: LIVER: Somewhat limited visualization due to bowel gas. Normal size, 14 cm in length. Diffusely inc reased echogenicity consistent with moderate hepatic steatosis. No focal liver lesions are seen. GALLBLADDER: Shadowing in gallbladder fossa consistent with multiple stones filling gallbladder. Gal lbladder wall not visible. NULL'S SIGN: Negative. BILIARY SYSTEM: No intrahepatic biliary ductal dilation. Common bile duct obscured by shadowing. Right kidney: No evidence of renal calculi. No evidence of hydronephrosis. No renal mass or cyst iden tified. Lower pole not well visualized due to overlying bowel gas. PANCREAS: Normal where visualized. ABDOMINAL AORTA AND IVC: Visualized portions normal caliber. ASCITES: None seen. IMPRESSION: Shadowing gallbladder fossa consistent multiple stones filling gallbladder. Moderate hepatic steatosis. DATA REPOSITORY:
== END ==
PROVIDERS: PCP Family Medicine; Visit Provider Family Medicine
DX: K75.9 Inflammatory liver disease, unspecified (principal); K76.0 Fatty (change of) liver, not elsewhere classified; K80.20 Calculus of gallbladder without cholecystitis without obstruction
CPT/HCPCS: 76705

== ENCOUNTER → 2024-06-16 14:54 | Outpatient (BNVA) | payer MEDICARE, BC, SELFPAY | PROVIDERS: PCP Family Medicine; Referring Provider Family Medicine; Visit Provider Surgery | DX: R10.9 Unspecified abdominal pain (principal) | CPT/HCPCS: 99213 ==

== ENCOUNTER 2024-08-12 06:16 | Day surgery (SDC) | payer MEDICARE, BC, SELFPAY ==
--- NOTE | 2024-08-11 21:30 | W.PREOPHP ---
Assessment and Plan Assessment and plan (1) Biliary colic: Status: Acute Assessment and plan: We reviewed the plan for laproscopic cholecystectomy. Kelli had the chance to ask any questions he had about the procedure. We can proceed with cholecystectomy as planned. History of Present Illness History of Present Illness Chief Complaint: abdominal pain Narrative: He is 80 years old, has been experiencing intermittent episodes of midepigastric, slightly right-sided abdominal pain. He describes it as sharp discomfort, and a little bit of sense of feeling ill. He is not able to describe any particular inciting factors. Episodes last for about 15 minutes or so, then resolve on their own. He underwent ultrasound that demonstrated cholelithiasis He has never had any abdominal surgical history Since our last office visit, encouraged has been doing quite well. He still gets some occasional discomfort. There have been no other significant interval changes to the history or physical exam. PFSH All Active Problems Biliary colic (Acute) Right shoulder pain (Acute) Idiopathic peripheral neuropathy (Chronic 11/04/17) bottom of feet; negative neuro eval in the past. Obesity (Chronic) BPH associated with nocturia (Chronic) not treated Serrated adenoma of colon (Acute ~06/2020) 2020-Dr. Zeus Linn, repeat colo 3 years Positional sleep apnea (Chronic) Tried CPAP, has made changes to sleeping position. Hyperlipemia (Acute) Orthostatic hypotension (Acute) Cognitive changes (Chronic) difficulty with naming; stable. Losing things. 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 Amaurosis fugax 2020, negative work-up Depressive disorder Chest pain NEgative MPI 08/07 Surgical History History of hip replacement left Orchiectomy, Radical left Colonoscopy - [facility] (06/2023) Temitope 06/23/20 Family History Mother Age: 93 Personal history of malignant neoplasm melanoma Father , 88 Heart disease Hyperlipidemia Subdural hematoma Dementia Prostate cancer Diverticulosis Sister Age: 68 Essential hypertension Obstruction of carotid artery on both sides Grandfather Heart disease Stroke Grandmother Personal history of malignant neoplasm (smoker) lung Grandmother Heart disease Sister Age: 67 Polychondritis Sister Age: 70 Seizure Depression Migraines Brother Age: 66 Arthritis of knee Social History Smoking/Tobacco Use Status: Never Smoking risk assessment performed?: Yes Alcohol Intake: current Alcohol Intake frequency: holidays/special occasions only Drug use: Never Substance use type: does not use Household members: significant other Housing: house Number of Children: 4 number of grandchildren: 0 Communication Needs: Corrective Lenses Do you need help understanding health information?: Never 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 Pets and animals: No Sexually active: Yes What is your relationship status?: living with partner How often do you talk on the phone with friends or family?: three or more times per week Panel score (0-1 are the most socially isolated patients): 2 What type of physical activity do you participate in: walking Duration: > 90 minutes/day Frequency: 3-4 times per week Seatbelt use: always Drive intox or ride w/intox caterpillar driver: No Do you feel safe at home: Yes Do you feel safe in your relationship?: Yes Meds Allergies and Home Medications Allergies Allergy/AdvReac Type Severity Reaction Status Date / Time poison hailey extract Allergy Intermediate Skin Rash Verified 08/12/24 06:20 Home Medications ?Medication ?Instructions ?Recorded ?Confirmed ?Type aspirin 81 mg tablet,delayed 81 mg PO DAILY 04/05/21 08/11/24 History release donepezil 10 mg tablet 10 mg PO QHS #90 tabs 04/24/24 08/12/24 Rx rosuvastatin 10 mg tablet 10 mg PO DAILY #90 tabs 06/29/24 08/12/24 Rx Exam Const General: cooperative, healthy appearing and not in acute distress Neck Neck: normal visual inspection, no lymphadenopathy and supple Resp Effort & Inspection: normal respiratory effort Auscultation: clear to auscultation bilaterally Cardio Jugular venous pressure: no JVD Rate: regular rate Rhythm: regular rhythm Heart Sounds: S1 normal and S2 normal GI Inspection: normal to inspection Palpation: soft, no guarding, no hernias and nontender Percussion: normal to percussion Auscultation: normal bowel sounds Neuro General: patient alert, patient awake and patient oriented x3 Psych Appearance: grossly normal
--- NOTE | 2024-08-11 21:32 | ROE_ITS ---
Date of service: 08/12/24 Time of Service: 09:30 Operative Note Operative Note DATE OF PROCEDURE: 08/12/24 PRE-OP DIAGNOSIS: biliary colic Chronic cholecystitis PROCEDURE: laproscopic cholecystectomy SURGEON: Daryl Gallo ROTARY SURFACE GRINDER: Colleen Nicolas ANESTHESIA TYPE: Local By Surgeon and General LMA/ETT Refer to Anesthesia Record ESTIMATED BLOOD LOSS: 50 PATHOLOGY: other (Gallbladder) COMPLICATIONS: None Patient was transported to: PACU Patient's condition: stable Indications: Kelli is a 74-year-old male who has been experiencing midepigastric abdominal pain. Ultrasound showed cholelithiasis, without evidence of acute cholecystitis. Symptoms seem consistent with symptomatic biliary colic, and I recommended cholecystectomy. Findings: Dense adhesions encasing the entire gallbladder with replacement of the gallbladder wall with thick scar tissue Procedure Description: After satisfactory induction of general anesthesia, I prepped and draped the abdomen in usual fashion. Next, I began with a periumbilical incision. I dissected down to the fascia and elevated it with Ricky clamps. I incised it sharply. Next, I passed a 12 mm operating port in the umbilical site. I secured it to the fascia with 0 Vicryl stitches. I then insufflated the peritoneal cavity. Next I inserted a 5 mm 30 degree scope and examined the underlying viscera. There was no evidence of injury created upon entry. I then placed the patient in some reverse Trendelenburg and left side down positioning. Then, with the assistance of the laparoscope, I used local anesthetic to anesthetize the midepigastric and 2 right upper quadrant port sites. Under the vision of the laparoscope, I passed 3 more 5 mm ports. The greater omentum was adherent up over the dome of the gallbladder, careful dissection was used to free this up. Once the dome was exposed, it was clear that there was longstanding chronic inflammation, as the gallbladder wall was extremely thick and difficult to grasp. It was quite contracted. This was retracted cephalad, exposing thick dense adhesions all along the gallbladder fossa down towards the infundibulum. With the assistance of indocyanine green, I began dissecting the gallbladder wall as best I could working in a lateral to medial fashion. Several layers were taken down with a combination of blunt dissection as well as cautery. Eventually, we were able to see some faint green coming through the gallbladder body. This was used to guide dissection down towards the infundibulum. The cystic triangle was essentially completely replaced with thick adhesive tissue making dissection extremely difficult. Although I was able to develop some of the gallbladder infundibulum and some of the cystic neck, I was quite concerned working medially as normal anatomy was absent. Therefore, after careful consideration, I felt a dome down approach was probably his best option. Turned our attention back to the upper portion of the gallbladder, and use some gentle retraction the liver edge away. Cautery was used to open the gallbladder fossa, and this dissection was carried down towards the cystic neck. A cystic artery was identified, and divided with the main portion of the gallbladder dissected free, and hemostasis achieved, I felt the safest option at this point was to divide the gallbladder free basically across the cystic neck in an effort to stay well away from the common bile duct. The midepigastric port was upsized to a 12 mm, and a YARIEL stapler was to divide the gallbladder free. It was placed in Endo Catch bag and removed by way of the midepigastric port site. Staple line was carefully examined. There was no evidence of any bile leakage, and it was clear that we were well away from the lower cystic triangle and common bile duct. Surgical field was hemostatic. It was irrigated. The effluent was drained, and the ports were removed under the direct vision of the laparoscope. Finally, the umbilical port site was removed, and the fascia was closed with an 0 Vicryl stitch. The fascia at the midepigastric port site was also approximated with 0 Vicryl. Skin and subcutaneous tissues were irrigated, and subcuticular stitches were used to approximate the skin edge. Bandages were applied, the patient was awoken from anesthesia and transferred to the recovery unit.
--- NOTE | 2024-08-11 21:34 | W.PM.DSUDISC ---
Date of service: 08/12/24 Time of Service: 09:38 Discharge Plan Disposition Patient Disposition: Home Condition: Good Discharge Details Attending Provider: Daryl Gallo Primary Care Provider: Aleida Quigley Home Meds and New Rx's Prescriptions: New tramadol 50 mg tablet 50 mg PO Q8H PRNQty: 12 0RF Rx Instructions: Take 1 tablet by mouth up to every 8 hours if needed for severe pain. Continued aspirin 81 mg tablet,delayed release (DR/EC) 81 mg PO DAILY donepezil 10 mg tablet 10 mg PO QHS Qty: 90 1RF rosuvastatin 10 mg tablet 10 mg PO DAILY Qty: 90 3RF Discharge Instructions Instructions: Cholecystectomy, Laparoscopic Surgery Additional Instructions: Kelli, it was great seeing you today, and I hope that you make a quick and uneventful recovery from your gallbladder removal. Your gallbladder was quite inflamed, and I am certainly glad that we decided to move forward with surgery. I suspect this would have caused more problems in the future. Hopefully, this is just from chronic gallstones, but I will certainly have the pathologist review the specimen to make sure there is nothing else out of the ordinary. Be thoughtful about your lifting and activity over the next few days. You should be up and moving around, but expect to be quite sore. It should improve a little bit day by day. You may also get quite a bit of bruising around the incision sites. That is very common, so do not be alarmed if that occurs. If anything seems unusual to you, please do not hesitate to ask. Otherwise, I look forward to seeing you in the office for your postoperative visit 1. Resume all of your regular medications. 2. Use heating pads and ice packs over the incision sites to help with pain. 3. Alternate over the counter tylenol and ibuprofen every 6 hours for the first 2 days, then use as needed. Use the prescription for tramadol if needed for more severe pain. 4. Leave bandages in place for 24 hours, then remove. 5. Shower with warm soapy water. Pat dry. Use a bandaid if needed to protect your clothing, wear if you find the surgical sites irritated 6. No soaking or tub baths until I see you in the office. 7. No heavy lifting until I see you in the office. 8. Call the office (or go directly to the emergency room after hours) if you notice any of the following: Develop chills (warm to touch), or if you have a thermometer and your temperature is above 101 Difficulty breathing or difficultly swallowing Persistent vomiting Any bleeding ? exceeding one tablespoon 9. Call your physician if the site where your intravenous was started becomes red, swollen, painful, and warm to touch. Referrals: Daryl Gallo MD [ [facility] STAFF PHYSICIAN] - (August 25 at 7:30 AM) Activity:: No heavy lifting Remove Dressings/Wound Care:: 24 hours Shower/Bathe:: 24 hours Diet:: As Tolerated Discharge Orders Discharge Orders: Discharge Order (Routine); Ordered 08/11/24 Ordered By: Daryl Gallo DS: Diagnosis Discharge Diagnosis (1) Biliary colic: Status: Acute Asessment and Plan: Status post laparoscopic cholecystectomy; follow-up for outpatient postoperative follow-up
[2024-08-12] VITALS (19 sets, daily range): BP systolic 105–143; BP diastolic 64–85; PULSE 50–64; RESP 15–22; TEMP 36.1–36.6; O2SAT 92–97; BMI 35.7
--- NOTE | 2024-08-12 06:40 | ANES.PREOP_ITS ---
General Info Date of Service Date Performed: 08/12/24 Height: 5 ft 9 in Weight: 109.8 kg Body Mass Index (BMI): 35.7 Surgical Procedure: Operation Date: 08/12/24 07:40 Proposed Procedure Side Surgeon p Cholecystectomy Laparoscopic Daryl Gallo MD Meds Allergies and Home Medications Allergies Allergy/AdvReac Type Severity Reaction Status Date / Time poison hailey extract Allergy Intermediate Skin Rash Verified 08/12/24 06:20 Home Medication ?Medication ?Instructions ?Recorded aspirin 81 mg tablet,delayed 81 mg PO DAILY 04/05/21 release donepezil 10 mg tablet 10 mg PO QHS #90 tabs 04/24/24 rosuvastatin 10 mg tablet 10 mg PO DAILY #90 tabs 06/29/24 Current Visit Medications: Current Medications Generic Name Dose Route Start Last Admin Trade Name Freq PRN Reason Stop Dose Admin Acetaminophen 1,000 mg 08/12/24 06:00 Acetaminophen 500 Mg Tab PO 08/12/24 23:59 PREOP SELVIN Celecoxib 200 mg 08/12/24 06:00 Celecoxib 200 Mg Cap PO 08/12/24 23:59 PREOP SELVIN Gabapentin 300 mg 08/12/24 06:00 Gabapentin 300 Mg Cap PO 08/12/24 23:59 PREOP SELVIN Hydromorphone HCl 0.2 mg 08/11/24 21:33 Hydromorphone 1 Mg/Ml Syr IVP 09/10/24 21:32 Q1H PRN PRN Ringer's Solution 1,000 mls @ 80 mls/hr 08/12/24 06:00 IV 08/12/24 23:59 INFUSION SELVIN Cefazolin Sodium/Dextrose 2 gm in 50 mls @ 100 mls/hr 08/12/24 06:00 Ancef Duplex IVPB 08/12/24 23:59 PREOP SELVIN IV Miscellaneous Supplies 1 each 08/12/24 06:00 Iv Access IV 08/12/24 23:59 DIRECTED SELVIN Indocyanine Green 5 mg 08/12/24 06:00 Indocyanine Green 25 Mg Vial IVP 08/12/24 23:59 PREOP SELVIN Sodium Chloride 0 ml 08/12/24 06:00 Normal Saline Flush 10 Ml Syr IV 08/12/24 23:59 PRN PRN Sodium Chloride 0 ml 08/12/24 06:00 Normal Saline 10 Ml Vial IJ 08/12/24 23:59 DIRECTED PRN Sterile Water 0 ml 08/12/24 06:00 Water,Injection,Sterile 10 Ml Vial IJ 08/12/24 23:59 DIRECTED PRN Tramadol HCl 50 mg 08/11/24 21:33 Tramadol 50 Mg Tab PO 09/10/24 21:32 Q6H PRN PRN Pain PFSH Active Problems Active Problems: Problem Status Onset Code Biliary colic Acute K80.50 Right shoulder pain Acute M25.511 Idiopathic peripheral neuropathy Chronic 11/04/17 G60.9 Obesity Chronic E66.9 BPH associated with nocturia Chronic N40.1, R35.1 Serrated adenoma of colon Acute ~06/2020 D12.6 Positional sleep apnea Chronic G47.39 Hyperlipemia Acute E78.5 Orthostatic hypotension Acute I95.1 Cognitive changes Chronic R41.89 Medical History Medical History 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 - followed by [employer] Amaurosis fugax 2020, negative work-up Depressive disorder Chest pain NEgative MPI 08/07 Surgical History Surgical History History of hip replacement left Orchiectomy, Radical left Colonoscopy - [facility] [place] (06/2023) Stoiber 06/23/20 Tobacco Smoking/Tobacco Use Status: Never Passive smoking exposure: Yes Alcohol Alcohol Intake: current Alcohol intake frequency: holidays/special occasions only Substance Use Substance use: Never Substance use type: does not use Vital Signs and Lab Results Vital Signs Most Recent Vital Signs in EMR: Most Recent Vital Signs Temp Pulse Resp BP Pulse Ox 36.5 C 62 16 137/85 95 08/12/24 06:21 08/12/24 06:21 08/12/24 06:21 08/12/24 06:21 08/12/24 06:21 Lab Results Blood Type / Crossmatch: No Data to Display Complete Blood Count: No Data to Display Complete Metabolic Panel: No Data to Display Liver Function Panel: No Data to Display Coagulation Panel: No Data to Display Cardiac Panel: No Data to Display Arterial Blood Gas: No Data to Display Venous Blood Gas: No Data to Display Pancreas Panel: No Data to Display Thyroid Panel: No Data to Display Infectious Disease: No Data to Display Blood Cultures: No Data to Display Toxicology Panel: No Data to Display Imaging and Studies Imaging and Studies Study information below may be from another EMR and interpreted by another provider. Please see original notes in EMR for more complete details. Stress Test Summary: 08/06/2018: Impressions: - Minor arrhythmias during the stress test which resolved appropriately. - Normal myocardial perfusion and contraction. Summary: 1. Myocardial perfusion imaging: No myocardial perfusion defects noted. 2. The calculated left ventricular ejection fraction after stress: 69%. LV global systolic function is normal. No left ventricular regional motion abnormality. 3. Stress ECG conclusions: The stress ECG is negative. 4. Stress: The target heart rate was achieved. There is a normal resting blood pressure with an appropriate response to stress. The patient experienced no chest pain during stress. Exercise capacity is excellent (12 METS). Anesthesia Assessment and Plan Anesthesia History Personal History: No History of Anesthesia Complications Family History: No Family History of Anesthesia Complications Exercise Tolerance Exercise Tolerance: Metabolic Equivalents>4 Pertinent Negatives Pertinent Negatives: No Symptoms of GERD, No Major Cardiovascular Symptoms or Complaints, No Major Pulmonary Symptoms or Complaints and No History of CVA/TIA Cardiac & Pulmonary Exam Cardiac Exam: Normal S1/S2 Heart Sounds Pulmonary Exam: Clear Bilateral Breath Sounds Implantable Cardiac Device Does patient have a Pacemaker or an ICD?: No Airway Exam Known Difficult Airway: No Mallampati Class: 3 Mouth Opening: Normal (> 3cm) Thyromental Distance: Greater than 3 cm Facial Hair: Full Fischer Neck Range of Motion: Full ROM Neck Circumference: Normal Teeth Condition: Normal Dentition ASA Classification ASA Score: ASA 2 Emergency Case?: No NPO Status NPO Status: NPO Clears >2 hours, Solids >8 hours Anesthesia Plan Resuscitation Status: Full Code Anesthesia Technique: General Anesthesia Airway Planned: Endotracheal Tube Monitors Used: Standard Monitors and SedLine Preoperative Comments:: Significant PMH: Biliary colic, Idiopathic peripheral neuropathy, Obesity, Serrated adenoma of colon, Positional sleep apnea, Hyperlipemia, Orthostatic hypotension Cognitive changes Plan GETA - TIVA w/ propofol infusion, adjuncts as necessary, adequate IV access, OGT, Sedline
[2024-08-12] MEDS: Lactated Ringers 1,000 ML 80 ML IV (06:50)
[2024-08-12] MEDS: Acetaminophen 500 MG TAB 1000 MG PO (06:57)
[2024-08-12] MEDS: Celecoxib 200 MG CAP PO (06:58)
[2024-08-12] MEDS: Indocyanine green 25 MG VIAL 5 MG IVP (06:58)
[2024-08-12] MEDS: Gabapentin 300 MG CAP PO (06:58)
[2024-08-12] MEDS: ceFAZolin 2 GM/50 ML BAG IVPB (07:50)
[2024-08-12] MEDS: Bupivacaine 0.25% Pres-Free W/EPI 30 ML VIAL (07:58)
--- NOTE | 2024-08-12 09:17 | GB_PTH ---
PATIENT: Kelli Mast LOC: [facility] U#:[id number] AGE/SX: 74/M ROOM: RE08/12/[address]: Daryl Gallo MD : 1950 BED: DIS: 08/12/2024 SPEC #: [id number] RECD: 08/12/24 13:24 STATUS: SAVANNA REQ #: [id number] DAT: 08/12/24 09:[address]: Daryl Gallo DEPT: Surgical Specimen RECD BY: Agnes Taylor ENTERED: 08/12/24 13:24 SP TYPE: GB OTHR DR: Aleida Quigley Tissues: 1 - GALLBLADDER Procedures: GROSS AND MICRO LEVEL 3 Comments: [id number]
--- NOTE | 2024-08-12 12:57 | W.ANESPOSTOP ---
Postoperative Evaluation Date, Time and Location Date Performed: 08/12/24 Time Performed: 12:59 Patient Location: Day Surgery Unit Vital Signs Most Recent Imported Vital Signs: Most Recent Vital Signs Temp Pulse Resp BP Pulse Ox 36.3 C L 50 L 16 105/64 95 08/12/24 11:05 08/12/24 11:05 08/12/24 11:05 08/12/24 11:05 08/12/24 11:05 Pain Score Most Recent Pain Score: Most Recent Pain Score Pain Level 2 08/12/24 11:05 Assessment Mental Status: Awake (Alert & Oriented to Patient Baseline) Airway and Respiratory Function: Patent airway with normal (patient baseline) respiratory exam Cardiovascular Function: Hemodynamically Stable Hydration Status: Adequately Hydrated Nausea & Vomiting: No Nausea or Vomiting Pain: Pain is tolerable per patient Peripheral Nerve Block: Patient did not receive a nerve block
== END 2024-08-12 13:44 | disposition home or self-care (01) ==
LOC: SUR 06:16
PROVIDERS: PCP Family Medicine; Visit Provider Surgery
PROC: 0FT44ZZ Resection of Gallbladder, Percutaneous Endoscopic Approach (ICD-10-PCS; CPT 47562; principal; 2024-08-12 07:30)
DX: K80.44 Calculus of bile duct with chronic cholecystitis without obstruction (principal); G60.9 Hereditary and idiopathic neuropathy, unspecified; E66.9 Obesity, unspecified
CPT/HCPCS: 47562; 88304; J0690; J1100; J2405; J2704; J3475

== ENCOUNTER → 2024-08-25 07:26 | Outpatient (BNVA) | payer MEDICARE, BC, SELFPAY | PROVIDERS: PCP Family Medicine; Referring Provider Family Medicine; Visit Provider Surgery | DX: Z48.815 Encounter for surgical aftercare following surgery on the digestive system (principal) ==

== ENCOUNTER 2025-06-28 09:46 | Outpatient (REF) | payer MEDICARE, BC, SELFPAY ==
[2025-06-30 12:40] LABS: Lyme Ab w Rflx to Lyme Confirm Positive (Negative)
[2025-06-30 15:04] LABS: Lyme IgG Ab Positive (Negative)
== END 2025-06-28 09:47 | disposition home or self-care (01) ==
LOC: LBN 09:46
PROVIDERS: PCP Family Medicine; Visit Provider Family Medicine
DX: T14.90XA Injury, unspecified, initial encounter (principal); W57.XXXA Bitten or stung by nonvenomous insect and other nonvenomous arthropods, initial encounter
CPT/HCPCS: 86617; 87798; 86618

== ENCOUNTER 2025-06-30 14:51 | Outpatient (CLI) | payer MEDICARE, BC, SELFPAY ==
[2025-07-01 11:33] LABS: Lyme Ab w Rflx to Lyme Confirm Positive (Negative)
[2025-07-01 12:42] LABS: Lyme IgG Ab Positive (Negative)
[2025-07-02 20:24] LABS: B. miyamotoi PCR Negative (Negative); Babesia divergens/MO-1 Negative (Negative); Ehrlichia muris eauclairensis Negative (Negative)
== END 2025-06-30 14:52 | disposition home or self-care (01) ==
LOC: LOS 14:52
PROVIDERS: PCP Family Medicine; Referring Provider Family Medicine; Visit Provider Family Medicine
DX: T14.90XA Injury, unspecified, initial encounter (principal); W57.XXXA Bitten or stung by nonvenomous insect and other nonvenomous arthropods, initial encounter
CPT/HCPCS: 36415; 86617; 87798; 86618